=== PATIENT | female | born 1990 | race Caucasian/White ===

== ENCOUNTER 2016-11-23 19:07 | Emergency (ER) | payer OTHER ==
[~2016-11-23] VITALS: Ht 162.6 cm; Wt 59.3 kg
[~2016-11-23 19:07] MED LIST: BCPILLS
[2016-11-23 19:13] VITALS: TEMP 36.8; Ht 162.6 cm; Wt 59.3 kg
[2016-11-23 19:43] LABS: BASO % 0.3 %; BASO ABS # 0.05 K/uL (0-0.2); COMPLETE YES; EOS % 1.5 %; HEMATOCRIT 38.4 % (37-47); IG% 0.3 %; LYMPH % 19.8 %; LYMPH ABS # 2.84 K/uL (1.2-3.4); MEAN CORPUSCULAR HEMOGLOBIN 30.2 pg (25-34); MEAN CORPUSCULAR HGB CONC 35.9 g/dl (32-36); MEAN PLATELET VOLUME 10.2 fL (7.4-10.4); MONO % 4.9 %; NEUT % 73.2 %; PLATELET COUNT 240 K/uL (130-400); RED BLOOD COUNT 4.57 M/uL (4.2-5.4); WHITE BLOOD COUNT 14.37 K/uL (4.8-10.8)
[2016-11-23 19:47] LABS: URINE APPEARANCE CLEAR (CLEAR); URINE BILIRUBIN NEG (NEG); URINE COLOR YELLOW; URINE EPITHELIAL CELL AUTO >30 /lpf (0-5); URINE NITRITE NEG (NEG); URINE SPECIFIC GRAVITY 1.015 (1.000-1.030); UROBILINOGEN NEG (NEG)
[2016-11-23 19:52] LABS: MANUAL MICROSCOPIC REQUIRED? NO; REVIEW REQ? YES
[2016-11-23 19:59] LABS: CALCIUM 8.9 mg/dl (8.5-10.1)
[2016-11-23 20:03] LABS: CREATININE 0.8 mg/dl (0.60-1.20); POTASSIUM 3.8 mmol/L (3.5-5.1)
--- NOTE | 2016-11-23 20:37 | DIAGNOSTIC IMAGING REPORT ---
ECTOPIC ULTRASOUND (TRANSABDOMINAL AND ENDOVAGINAL SCANNING) CLINICAL HISTORY: Vaginal bleeding. . COMPARISON STUDY: No previous studies for comparison. FINDINGS: The uterus measures 7.1 x 4.2 x 4.2 cm. Endometrial stripe measures 5 mm. No intrauterine gestational sac is visualized. There is a 13 mm uterine fibroid. The left ovary measures 32 x 17 x 21 mm. The left ovary appears architecturally unremarkable. The right ovary measures 30 x 19 x 32 mm. There is an ill-defined echogenic mass adjacent to the right ovary, likely representing a blood clot. There is hemorrhagic free fluid within the adnexa and cul-de-sac. IMPRESSION: 1. Ill-defined echogenic mass adjacent to the right ovary, likely representing a blood clot. There is echogenic free fluid in the adnexal regions or cul-de-sac, consistent with hemoperitoneum. Likely diagnostic considerations include ruptured hemorrhagic cyst versus ruptured ectopic . 2. No intrauterine gestational sac identified Electronically signed by: Eris Blackwell M.D. 11/23/2016 8:35 PM Dictated Date/Time: 11/23/2016 8:32 PM
[2016-11-23 22:30] VITALS: BP 109/79; PULSE 82; O2SAT 97
--- NOTE | 2016-11-23 23:18 | EMERGENCY ROOM VISIT NOTE ---
History Report prepared by Davi: Shelli Candelaria Under the Supervision of: Dr. Elijah Hurtado M.D. First contact with patient: 19:16 Chief Complaint: ED VAG BLEEDING Stated Complaint: + PREG TEST,BLEEDING TODAY History of Present Illness The patient is a 26 year old female who presents to the Emergency Room with complaints of intermittent vaginal bleeding for the past couple of hours. The patient had a positive test 10 days ago. She estimates that she is about 4-5 weeks . But she has irregular periods, so she is not completely sure. She has not followed-up with ob-sales and service agent yet. This is her first . She has not been doing any fertility treatments. The patient states that a couple of hours she started experiencing some red blood that is heavier than spotting and close to the amount of bleeding she has with a period. She has also been experiencing some mild pelvic cramping which has resolved. The patient denies fever, vomiting, urinary symptoms, recent trauma or injury, and any personal history of PID. Source of History: patient Onset: a couple of hours ago Position: other (vaginal) Symptom Intensity: mild Quality: other (bleeding) Timing: intermittent Associated Symptoms: + abdominal pain (pelvic cramping), No fevers, No urinary symptoms, No vomiting Review of Systems See HPI for pertinent positives & negatives. A total of 10 systems reviewed and were otherwise negative. Past Medical & Surgical Medical Problems: (1) Pain, dental (2) Pain, dental Family History No pertinent history stated. Social History Smoking Status: Current Every Day Smoker Marital Status: Housing Status: lives with significant other Current/Historical Medications No Active Prescriptions or Reported Meds Allergies Coded Allergies: No Known Allergies (Unverified , NONE, 11/23/16) Physical Exam Vital Signs Date Time Temp Pulse Resp B/P Pulse Ox O2 Delivery O2 Flow Rate FiO2 11/23/16 22:30 82 109/79 97 11/23/16 20:57 77 15 116/91 99 Room Air 11/23/16 19:13 36.8 100 16 169/93 97 Room Air Physical Exam Constitutional: Vital signs reviewed. Eyes: Pupils are equal round reactive to light. Conjunctiva are noninjected. ENT: Pharynx is clear without erythema or exudate. Mucous membranes are moist. Neck supple without meningeal signs. Respiratory: Clear to auscultation bilaterally. Breath sounds are equal bilaterally. Cardiovascular: Regular rate and rhythm. No rubs or gallops. GI: Soft, nondistended and nontender. Bowel sounds are present. Musculoskeletal: No peripheral edema. Integumentary: No cyanosis. Neurological: The patient is awake and alert. No focal deficits. Psychiatric: Normal affect. Medical Decision & Procedures ER Provider Diagnostic Interpretation: Radiology results as stated below per my review and the radiologist's interpretation: ECTOPIC ULTRASOUND (TRANSABDOMINAL AND ENDOVAGINAL SCANNING) CLINICAL HISTORY: Vaginal bleeding. . COMPARISON STUDY: No previous studies for comparison. FINDINGS: The uterus measures 7.1 x 4.2 x 4.2 cm. Endometrial stripe measures 5 mm. No intrauterine gestational sac is visualized. There is a 13 mm uterine fibroid. The left ovary measures 32 x 17 x 21 mm. The left ovary appears architecturally unremarkable. The right ovary measures 30 x 19 x 32 mm. There is an ill-defined echogenic mass adjacent to the right ovary, likely representing a blood clot. There is hemorrhagic free fluid within the adnexa and cul-de-sac. IMPRESSION: 1. Ill-defined echogenic mass adjacent to the right ovary, likely representing a blood clot. There is echogenic free fluid in the adnexal regions or cul-de-sac, consistent with hemoperitoneum. Likely diagnostic considerations include ruptured hemorrhagic cyst versus ruptured ectopic . 2. No intrauterine gestational sac identified Electronically signed by: Eris Blackwell M.D. 11/23/2016 8:35 PM Dictated Date/Time: 11/23/2016 8:32 PM Laboratory Results 11/23/16 19:34 Red Blood Count 4.57, Mean Corpuscular Volume 84.0, Mean Corpuscular Hemoglobin 30.2, Mean Corpuscular Hemoglobin Concent 35.9, Mean Platelet Volume 10.2, Neutrophils (%) (Auto) 73.2, Lymphocytes (%) (Auto) 19.8, Monocytes (%) (Auto) 4.9, Eosinophils (%) (Auto) 1.5, Basophils (%) (Auto) 0.3, Neutrophils # (Auto) 10.52, Lymphocytes # (Auto) 2.84, Monocytes # (Auto) 0.71, Eosinophils # (Auto) 0.21, Basophils # (Auto) 0.05 11/23/16 19:34 Test 11/23/16 19:25 11/23/16 19:34 Urine Color YELLOW Urine Appearance CLEAR (CLEAR) Urine pH 6.0 (4.5-7.5) Urine Specific [place] 1.015 (1.000-1.030) Urine Protein NEG (NEG) Urine Glucose (UA) NEG (NEG) Urine Ketones NEG (NEG) Urine Occult Blood 3+ (NEG) Urine Nitrite NEG (NEG) Urine Bilirubin NEG (NEG) Urine Urobilinogen NEG (NEG) Urine Leukocyte Esterase SMALL (NEG) Urine WBC (Auto) 5-10 /hpf (0-5) Urine RBC (Auto) >30 /hpf (0-4) Urine Hyaline Casts (Auto) 0 /lpf (0-5) Urine Epithelial Cells (Auto) >30 /lpf (0-5) Urine Bacteria (Auto) NEG (NEG) Urine Renal Epithelial Cells /lpf (0-5) White Blood Count 14.37 K/uL (4.8-10.8) Red Blood Count 4.57 M/uL (4.2-5.4) Hemoglobin 13.8 g/dL (12.0-16.0) Hematocrit 38.4 % (37-47) Mean Corpuscular Volume 84.0 fL (80-100) Mean Corpuscular Hemoglobin 30.2 pg (25-34) Mean Corpuscular Hemoglobin Concent 35.9 g/dl (32-36) Platelet Count 240 K/uL (130-400) Mean Platelet Volume 10.2 fL (7.4-10.4) Neutrophils (%) (Auto) 73.2 % Lymphocytes (%) (Auto) 19.8 % Monocytes (%) (Auto) 4.9 % Eosinophils (%) (Auto) 1.5 % Basophils (%) (Auto) 0.3 % Neutrophils # (Auto) 10.52 K/uL (1.4-6.5) Lymphocytes # (Auto) 2.84 K/uL (1.2-3.4) Monocytes # (Auto) 0.71 K/uL (0.11-0.59) Eosinophils # (Auto) 0.21 K/uL (0-0.5) Basophils # (Auto) 0.05 K/uL (0-0.2) RDW Standard Deviation 41.3 fL (36.4-46.3) RDW Coefficient of Variation 13.5 % (11.5-14.5) Immature Granulocyte % (Auto) 0.3 % Immature Granulocyte # (Auto) 0.04 K/uL (0.00-0.02) Anion Gap 7.0 mmol/L (3-11) Est Creatinine Clear Calc Drug Dose 91.3 ml/min Estimated GFR () 117.1 Estimated GFR (Non- 101.0 BUN/Creatinine Ratio 14.0 (10-20) Calcium Level 8.9 mg/dl (8.5-10.1) Human Chorionic Gonadotropin, Quant 741 mIU/mL Laboratory results as reviewed by me. ED Course 1915: The patient was evaluated in room B4B. A complete history and physical exam was performed. 2116: I spoke with Dr. Haider of [facility] ob-sales and service agent. We discussed the patient's case and her ultrasound results. He will come to the ED to evaluation the patient for further management. 2116: I reassessed the patient at this time. She says that she feels no pain at the moment and the bleeding has slowed down significantly. I discussed the results and treatment plan with the patient. I answered all pertaining questions that she had. She expressed understanding and verbalized agreement. 2258: I discussed the case with Dr. Haider in the ED. He says that the patient reports a history of hemorrhagic ovarian cysts. Medical Decision This is a 26-year-old female presents with vaginal bleeding. Differential diagnosis includes threatened miscarriage, miscarriage, ectopic , heterotopic , fibroid. I did perform a limited focused review of portions of the patient's old chart on the electronic medical record. The patient has had no recent pertinent visits to this hospital. I did evaluate the patient as noted above. IV access was established. I did order and personally review the patient's urinalysis as described above. The specimen appeared to be contaminated. She denies any urinary symptoms. I did order and review the patient's blood work as noted in the electronic medical record. Her beta-hCG is 741. She is not anemic. Blood type is O+. I did order an ultrasound of the pelvis. I did review the images myself as well as the radiology report as described above. There was an echogenic mass adjacent to the right ovary considered to be likely a blood clot as well as some hemoperitoneum. I did reassess the patient. She stated that her bleeding had slowed down significantly and she had no pain. She appears quite comfortable at this time. I did discuss the test results with the patient and her significant other. I was concerned about possible ectopic with rupture at this time. I did discuss the case with Dr. Haider of [facility]. He did examine the patient here in the emergency department. After discussion with the patient he decided to discharge her home with 12 hour follow up. While he could not rule out ectopic he did state that the patient has a history of hemorrhagic cyst. He did offer her hospitalization but he stated that she preferred to go home. He did arrange for follow up at 8:30 in the morning with Dr. Breen. The patient was given strict instructions to return and discharged in good condition. Consults Time Called: 2110 Consulting Physician: Dr. Haider Returned Call: [address] Haider of [facility] ob-sales and service agent. We discussed the patient's case and her ultrasound results. He will come to the ED to evaluation the patient for further management. Impression Primary Impression: First trimester bleeding Additional Impression: Hemoperitoneum Scribe Attestation The scribe's documentation has been prepared under my direct and personally reviewed by me in its entirety. I confirm that the note above accurately reflects all work, treatment, procedures, and medical decision making performed by me. Departure Information Dispostion Being Evaluated By Hospitalist Prescriptions No Active Prescriptions or Reported Meds Referrals No Doctor, Assigned (PCP) Patient Instructions My [facility] Health Problem Qualifiers
--- NOTE | 2016-11-24 00:14 | HISTORY & PHYSICAL EXAMINATION ---
DATE OF ADMISSION: 11/23/2016 HISTORY OF PRESENT ILLNESS: Janett presented to the Emergency Room initially with cramping and knowing to be with the last menstrual period of 10/07/2016. The cramping started soon afterwards, but then she had some bleeding initially, brownish in nature than pink and then she started to have heavier bleeding, heavier than a period, and passed a clot.. She did not notice any tissue, but she did pass this over the toilet. She has no pain at this time at all. In fact, when questioned on her drive in, she stated over the bumpy parts of her ride, she had no discomfort whatsoever. She has no nausea, no distention and no vomiting. She states she does have a past history of ovarian cyst, specifically, hemorrhagic ovarian cyst. PAST GYNECOLOGICAL HISTORY: No major AGENT TELEGRAPHER issues. No history of PID. PAST OBSTETRICAL HISTORY: Never been before. She states she has been trying to get for the last 6 years. PAST MEDICAL HISTORY: States she is healthy. PAST SURGICAL HISTORY: No major surgeries. MEDICATIONS: None. DRUG ALLERGIES: None. PHYSICAL EXAMINATION: VITAL SIGNS: Her vital signs are stable. She is afebrile, pulse rate is 77. Blood pressure 116/91. She is afebrile. ABDOMEN: Benign. Bowel sounds are positive. There is no distention. It is nontender. There is no peritoneal irritation. No rebound pain and no pain on percussion. PELVIC: Exam id done with nursing. On visualization of the cervix, the os does not appear open. There is some dark blood coming from the cervical os. No pus is seen. BIMANUAL EXAM: Is completely nontender, uterus not enlarged. Adnexa are nontender, specifically the right adnexa and the left adnexa, no masses are palpated and no motion tenderness and no tenderness, whatsoever. IMPRESSION AND PLAN: Janett had a quantitative hCG of 741. Her blood type is O positive. Ultrasound did suggest hemoperitoneum, however and an ill-defined echogenic mass adjacent to the right ovary, likely representing a blood clot. The fluid is only present within the adnexa and cul-de-sac. I reviewed this case and actually discussed this case with my colleague, Dr. Breen, as well and the ER doctor, Dr. Elijah Hurtado, to formulate a plan. The most likely diagnosis is she is having a spontaneous miscarriage at 7 weeks. Her quantitative hCG should be significantly higher and the uterus does appear empty. However, the empty uterus does not necessarily concern me for ectopic as the count is 741, which is well below the 1000 threshold. Another factor of having miscarriage is she has no pain at this time; the cramping was only associated with the clot and her bimanual exam and abdominal exam are completely without pain or tenderness. I did discuss that the possibility of ectopic is there, as there was an ill-defined echogenic mass, which again looked like a blood clot. I do think this is much more likely to be a hemorrhagic ovarian cyst. We discussed several options of management, we discussed the option of surgery; however, she is hemodynamically stable. Her blood count is excellent at 13.8. Her white count is elevated at 14.37, but this is consistent with and/or a ruptured ovarian cyst. Certainly, with such a quiet abdomen and pelvic exam and hemodynamically stable, I do not think surgery is our first option. I discussed and represented two options for her, one with a short stay of observation where she stayed for 12 hours and then we observed her. Alternatively, I suggested the option of going home and follow up in our office tomorrow for assessment. This would include quantitative hCG and hemoglobin. If this were the case and she went home, and the patient does prefer to go home, I discussed that if her symptoms became worse, such as lightheadedness, increased bleeding or pain or generally feeling unwell, I would urge her and her partner to come back to the ER as soon as possible for reassessment. At this stage, it simply is impossible to rule out ectopic; I just think clinically, it is unlikely and again I discussed this with my colleague, Dr. Breen. We agree that this is unlikely and the option of observation at home or observation in the hospital are both reasonable. They prefer observation at home and we will make arrangements for them to be assessed in the office tomorrow. KIERA
== END 2016-11-23 22:35 | disposition home or self-care (01) ==
LOC: C.EDB 19:08
DX: O20.8 Other hemorrhage in early pregnancy (principal); O99.611 Diseases of the digestive system complicating pregnancy, first trimester; K66.1 Hemoperitoneum; O99.331 Smoking (tobacco) complicating pregnancy, first trimester; F17.200 Nicotine dependence, unspecified, uncomplicated

== ENCOUNTER → 2016-11-24 | Outpatient (CLI) | payer OTHER ==
[2016-11-24 09:32] LABS: HEMATOCRIT 39.8 % (37-47); MEAN CELL VOLUME 84.9 fL (80-100); MEAN CORPUSCULAR HEMOGLOBIN 29.4 pg (25-34); MEAN PLATELET VOLUME 10.5 fL (7.4-10.4); PLATELET COUNT 247 K/uL (130-400); RED BLOOD COUNT 4.69 M/uL (4.2-5.4); WHITE BLOOD COUNT 12.17 K/uL (4.8-10.8)
[2016-11-24 09:34] LABS: MEAN CORPUSCULAR HGB CONC 34.7 g/dl (32-36)
== END | disposition home or self-care (01) ==
LOC: C.LAB1850 09:11
PROVIDERS: ATTEND Obstetrics & Gynecology
DX: Z33.1 Pregnant state, incidental (principal)

== ENCOUNTER → 2016-11-26 | Outpatient (CLI) | payer OTHER | END | disposition home or self-care (01) | LOC: C.LAB1850 10:12 | PROVIDERS: ATTEND Obstetrics & Gynecology | DX: Z33.1 Pregnant state, incidental (principal) ==

== ENCOUNTER → 2016-11-30 | Outpatient (CLI) | payer OTHER | END | disposition home or self-care (01) | LOC: C.LAB1850 14:45 | PROVIDERS: ATTEND Obstetrics & Gynecology | DX: Z33.1 Pregnant state, incidental (principal) ==

== ENCOUNTER 2023-06-11 18:18 | Observation (INO) ==
[2023-06-11] MEDS ORDERED: MoRPHine SULFATE 4 MG/ML 1 ML CARP\\VIAL IV STA (18:35)
[2023-06-11] MEDS: SODIUM CHLORIDE 0.9% 1,000 ML IV SCH ×2 (18:45→19:24)
[2023-06-11] MEDS ORDERED: SODIUM CHLORIDE 0.9% 250 ML IV PRN (18:58)
--- NOTE | 2023-06-11 19:06 | Emergency Department Note ---
Impression & Plan Hemoperitoneum due to rupture of right tubal ectopic , , ectopic ED Provider Note NAME: RANDI ZAPATA AGE: 32 SEX: F : 1990 ARRIVES VIA: Ambulance INFORMANT: Patient ED PROVIDER(S): Ralph Lilly DO CHIEF COMPLAINT: abdominal pain HPI: Patient is a 32-year-old female who presents the ER for severe abdominal pain. She notes she is about 7 to 8 weeks . She is a who notes that she is not having any vaginal bleeding but is having severe abdominal pain diffusely throughout her suprapubic region tracking up to her rib cage. She notes it is very painful with any kind of movement. She notes is also painful with breathing. She denies any headache or change in vision. No chest pain or shortness of breath. 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 ADDITIONAL HISTORY OBTAINED: Per HPI Chronic Medical/Social Conditions Affecting Care: Per HPI PAST MEDICAL HISTORY:See Below PAST SURGICAL HISTORY:See Below FAMILY HISTORY:See Below SOCIAL HISTORY:See Below HOME MEDICATIONS:See Below ALLERGIES:See Below VITALS:See Below PHYSICAL EXAMINATION: GENERAL: Sitting up in bed, alert, moderate distress holding abdomen EYE EXAM: normal conjunctiva. PERRL and EOM's grossly intact. OROPHARYNX: no exudate, no erythema, lips, buccal mucosa, and tongue normal and mucous membranes are moist NECK: supple, no nuchal rigidity, no adenopathy, non-tender LUNGS: Clear to auscultation. Normal chest wall mechanics HEART: no murmurs, S1 normal and S2 normal ABDOMEN: abdomen slightly rigid and diffusely tender to palpation with guarding in the lower pelvis UPPER EXTREMITIES: upper extremities are grossly normal. LOWER EXTREMITIES: No pitting edema. NEURO EXAM: Normal sensorium, cranial nerves II-XII grossly intact, normal speech, no gross weakness of arms, no gross weakness of legs. MEDICAL DECISION MAKING: Patient is a 32-year-old female who presents the ER via EMS. History was obtained from EMS present at bedside. IVs were established blood work was obtained. I obtained a quick bedside ultrasound which showed free fluid around the liver and a large amount of free fluid in the pelvis which appeared to be complex. Patient was typed and crossed and external records were reviewed in [facility] that showed beta hCG 50,000. Labs showed a white count of 23,000 and hemoglobin 11.4 down from baseline of about 13. She was typed and crossed for 2 units. INR unremarkable. BMP with mild hypokalemia 3.4. LFTs bilirubin was unremarkable. hCG of 57,000. Did contact ultrasound who presented at bedside and performed a quick ultrasound which located the likely ectopic in the right adnexa. I called Dr. Cr who is on-call who presented at bedside evaluate the patient and took patient emergently to the OR for ruptured ectopic. Patient was given morphine and fluids while in the ER. External Records Reviewed: External records reviewed from epic Consults/Care Managements Discussions: Per [facility] Triage Nursing notes reviewed. Limited review of prior medical records performed Vital Signs: reviewed and remarkable for HTN Differential diagnosis: Differential diagnoses includes but is not limited to gastritis, peptic ulcer disease, GERD, gallbladder disease, pancreatitis, small bowel obstruction, appendicitis, diverticulitis, hernia, urinary tract infection, torsion, /ectopic (if female), perforation, trauma, infectious. ER treatment provided: See below Diagnostics interpreted by me include EKG and cardiac monitoring as listed below: -Cardiac Monitoring: An order was placed for continuous cardiac monitoring. The monitor shows a rate of 60 with sinus rhythm. -ECG: Sinus rhythm rate of 59 Normal axis No PVCs QTc 427 -Laboratory studies:Interpreted by me as stated above in MDM and shown below. Imaging studies: Xrays: As interpreted by me:none CTs show: none Bedside ultrasound performed by me shows blood products in the lower pelvis and right upper quadrant around the liver Ultrasound of the pelvis shows likely right ectopic with hemoperitoneum Procedures:none Critical Care: I have personally spent 35 minutes of critical care time in the direct management of this patient. This includes bedside care, interpretation of diagnostic studies, and testing, discussion with consultants, patient, and family members, and other required patient management activities. This 35 minutes is in excess of all separately billable procedures. Past Med/Surg History Medical History No pertinent past medical history Surgical History No pertinent past surgical history Social History Smoking Status: Current every day smoker Tobacco Type: Cigarettes Hx Alcohol Use: No Hx Substance Use: No Preferred Language: Vietnamese Feels Safe at Home: Yes Allergies Allergies Allergy/AdvReac Type Severity Reaction Status Date / Time No Known Allergies Allergy Unknown NONE Verified 06/11/23 19:10 Home Meds Home Medications Medication Instructions Recorded Confirmed acetaminophen 500 mg tablet 500 mg PO DIRECTED PRN Pain 05/19/21 06/11/23 vit no.95-ferrous 1 tab PO DAILY 06/11/23 06/11/23 fumarate 28 mg-folic acid 800 mcg tablet () Results & Data (ED) Vital Signs Vital Signs - 24 hr 06/11/23 18:21 06/11/23 18:32 06/11/23 18:40 Temperature 36.4 C L Temperature Source Oral Pulse Rate 75 56 L 59 L Respiratory Rate 20 Respiratory Effort / Characteristics Non-Labored Spontaneous Respiratory Depth Normal Respiratory Pattern Regular Blood Pressure 134/75 Blood Pressure Mean 94 Blood Pressure Position Lying Pulse Oximetry 100 Oxygen Delivery Method Room Air Room Air Sepsis Recent Fever Within 48 Hours No Sepsis New/Unexplained Change in Mental Status No Sepsis Action Taken by Nursing No Action Required 06/11/23 20:21 Temperature Temperature Source Pulse Rate Respiratory Rate Respiratory Effort / Characteristics Respiratory Depth Respiratory Pattern Blood Pressure Blood Pressure Mean Blood Pressure Position Pulse Oximetry Oxygen Delivery Method Room Air Sepsis Recent Fever Within 48 Hours Sepsis New/Unexplained Change in Mental Status Sepsis Action Taken by Nursing Laboratory Data 06/11/23 18:30 06/11/23 18:30 Lab Results 06/11/23 06/11/23 06/11/23 Range/Units 18:30 18:39 18:40 WBC 23.31 H (4.8-10.8) K/ul RBC 3.70 L (4.20-5.40) M/uL Hgb 11.4 L (12.0-16.0) g/dl POC Hgb 11.2 L (12.0-16.0) g/dl Hct 31.7 L (37.0-47.0) % POC Hct 33 L (37-47) % MCV 85.7 (80.0-100.0) fL MCH 30.8 (25.0-34.0) pg MCHC 36.0 (32.0-36.0) g/dL RDW Std Deviation 39.8 (36.4-46.3) fL RDW Coeff of Kaiser 12.8 (11.5-14.5) % Plt Count 216 (130-400) K/uL MPV 11.0 (9.4-12.4) fL Immature Gran % (Auto) 0.7 % Neut % (Auto) 75.8 % Lymph % (Auto) 16.0 % [place] % (Auto) 5.7 % Eos % (Auto) 1.2 % Baso % (Auto) 0.6 % Neut # (Auto) 17.67 H (1.40-6.50) K/uL Lymph # (Auto) 3.73 H (1.20-3.40) K/uL [place] # (Auto) 1.34 H (0.11-0.59) K/uL Eos # (Auto) 0.27 (0.00-0.50) K/uL Baso # (Auto) 0.13 (0.00-0.20) K/uL Immature Gran # (Auto) 0.17 (0.01-0.20) K/uL PT 12.2 H (9.0-12.0) Seconds INR 1.1 (0.9-1.1) POC Sodium 138 (135-144) mmol/L Sodium 135 L (136-145) mmol/L POC Potassium 3.3 (3.3-5.0) mmol/L Potassium 3.4 L (3.5-5.1) mmol/L POC Chloride 103 (101-112) mmol/L Chloride 106 (98-107) mmol/L Carbon Dioxide 22 (21-32) mmol/L POC Total CO2 20 L (24-31) mmol/L Anion Gap 7 (3-11) POC Anion Gap 19.0 (16-25) mmol/L POC BUN 6 L (7-18) mg/dl BUN 8 (6-23) mg/dl Creatinine 0.61 (0.6-1.2) mg/dl POC Creatinine 0.5 L (0.6-1.3) mg/dl Est Cr Clr Drug Dosing 125.5 ml/min Est GFR ( Amer) 138.1 ml/min Est GFR (Non-Af Amer) 119.1 ml/min BUN/Creatinine Ratio 13.1 (10-20) Glucose 130 H (70-99(Fasting)) mg/dl POC Glucose (other) 130 H (70-99) mg/dl Calcium 8.6 (8.6-10.3) mg/dl POC Ioniz Calcium Venecia 1.12 (1.12-1.32) mmol/l Total Bilirubin 0.6 (0.2-1.0) mg/dl AST 11 L (13-39) U/L ALT 10 (7-52) U/L Alkaline Phosphatase 37 (34-104) U/L Total Protein 6.4 (6.0-8.3) gm/dl Albumin 4.2 (3.4-5.0) gm/dl Globulin 2.2 L (2.5-4.0) gm/dl Albumin/Globulin Ratio 1.9 (0.9-2) HCG, Quant 23277 mIU/ml Blood Type O Positive Antibody Screen NEGATIVE Crossmatch See Detail Administered Medications Discontinued Medications Sodium Chloride (Nss) 1,000 mls @ 999 mls/hr IV .Q1H1M RADHA Stop: 06/11/23 20:45 Last Admin: 06/11/23 19:24 Dose: 999 mls/hr Documented By: Infusion: 06/11/23 19:24 Dose: Infused Documented By: Admin: 06/11/23 18:45 Dose: 999 mls/hr Documented By: CPB Cefazolin Sodium (Ancef 2000mg) 2,000 mg in 15 mls @ 3.75 mls/min IV ONCE ONE; Protocol Stop: 06/11/23 21:31 Last Admin: 06/11/23 20:55 Dose: 3.75 mls/min Documented By: [id number] Morphine Sulfate (Morphine Sulfate 4 Mg/Ml 1 Ml Carp\Vial) 4 mg IV NOW STA Stop: 06/11/23 18:36 Last Admin: 06/11/23 18:40 Dose: 4 mg Documented By: CPB Imaging Data Radiologist's Impression: Ultrasound 06/11/23 18:32 CR Exam(s): US OB 1st TRIMESTER EXAM: US First Trimester , Transabdominal CLINICAL HISTORY: Reason for exam: ? Ruptured ectopic. TECHNIQUE: Real-time transabdominal obstetrical ultrasound of the maternal pelvis and a first trimester with image documentation. COMPARISON: No relevant prior studies available. FINDINGS: Gestation: No intrauterine gestational sac is seen. Uterus/cervix: There is a rim calcified mass measuring 4.5 x 4.3 x 4.8 cm in the uterus consistent with a fibroid. The uterus measures 10.8 x 5. 6 x 6.2 cm. Ovaries: There is a thick-walled cystic structure measuring 1.8 x 2.5 x 1.7 cm in the right adnexa with increased Doppler blood flow along the rim. No structures are identified. The left ovary is not visible. Free fluid: There is a moderate amount of free fluid in the pelvis and along the inferior margin of the liver. IMPRESSION: No intrauterine gestational sac is seen. Complex cystic structure in the right adnexa measuring 2.5 cm. There is a moderate amount of free fluid in the pelvis and in the abdomen adjacent to the inferior margin of the liver. Possible ruptured ectopic . Other considerations include right adnexal corpus luteum cyst and recent failed . Correlate with serial quantitative beta hCG if necessary. Communications: Call Doctor Above results Electronically signed by: Mohsen Handley MD 06/11/23 19:38 PM Discharge Plan Visit Data Chief Complaint: Abdominal Pain Stated Complaint: , POSS MISCARRIAGE ED Provider: Ralph Lilly Discharge Problem: Hemoperitoneum due to rupture of right tubal ectopic , , ectopic Patient Disposition: Admitted As Inpatient Discharge Instructions Interventions: ED Discharge Assessment Last Done: 06/11/23 20:21 Discharge Problem: , ectopic Qualifiers: Location of ectopic : unspecified location Intrauterine status: unspecified Qualified Code(s): O00.90 - Unspecified ectopic without intrauterine
[2023-06-11 19:11] LABS: Albumin Globulin Ratio 1.9 (0.9-2); Albumin Level 4.2 gm/dl (3.4-5.0); BUN Creatinine Ratio 13.1 (10-20); Bilirubin,Total 0.6 mg/dl (0.2-1.0); Calcium 8.6 mg/dl (8.6-10.3); Creatinine Clr Calc Pharmacy 125.5 ml/min; Est GFR (African American) 138.1 ml/min; Est GFR (Non-African American) 119.1 ml/min; Globulin 2.2 gm/dl (2.5-4.0); Potassium 3.4 mmol/L (3.5-5.1); Total Protein 6.4 gm/dl (6.0-8.3)
[2023-06-11 19:13] LABS: Basophils # (auto) 0.13 K/uL (0.00-0.20); Basophils % (auto) 0.6 %; Eosinophils # (auto) 0.27 K/uL (0.00-0.50); Eosinophils % (auto) 1.2 %; Hematocrit (blood only) 31.7 % (37.0-47.0); Hemoglobin 11.4 g/dl (12.0-16.0); Immature Granulocytes # (auto) 0.17 K/uL (0.01-0.20); Immature Granulocytes % (auto) 0.7 %; Lymphocytes # (auto) 3.73 K/uL (1.20-3.40); Mean Corpuscular Hemoglobin 30.8 pg (25.0-34.0); Mean Corpuscular Volume 85.7 fL (80.0-100.0); Monocytes # (auto) 1.34 K/uL (0.11-0.59); Monocytes % (auto) 5.7 %; Neutrophils # (auto) 17.67 K/uL (1.40-6.50); Neutrophils % (auto) 75.8 %; Platelet Count 216 K/uL (130-400); RDW Coefficient of Variation 12.8 % (11.5-14.5); RDW Standard Deviation 39.8 fL (36.4-46.3); White Blood Count 23.31 K/ul (4.8-10.8)
[2023-06-11 19:19] LABS: INR 1.1 (0.9-1.1); Prothrombin Time 12.2 Seconds (9.0-12.0)
[2023-06-11 19:32] LABS: iSTAT Creatinine 0.5 mg/dl (0.6-1.3); iSTAT Hemoglobin 11.2 g/dl (12.0-16.0); iSTAT Ionized Calcium 1.12 mmol/l (1.12-1.32); iSTAT Potassium 3.3 mmol/L (3.3-5.0)
--- NOTE | 2023-06-11 19:39 | Ultrasound Report ---
Exam(s): US OB 1st TRIMESTER EXAM: US First Trimester , Transabdominal CLINICAL HISTORY: Reason for exam: ? Ruptured ectopic. TECHNIQUE: Real-time transabdominal obstetrical ultrasound of the maternal pelvis and a first trimester with image documentation. COMPARISON: No relevant prior studies available. FINDINGS: Gestation: No intrauterine gestational sac is seen. Uterus/cervix: There is a rim calcified mass measuring 4.5 x 4.3 x 4.8 cm in the uterus consistent with a fibroid. The uterus measures 10.8 x 5. 6 x 6.2 cm. Ovaries: There is a thick-walled cystic structure measuring 1.8 x 2.5 x 1.7 cm in the right adnexa with increased Doppler blood flow along the rim. No structures are identified. The left ovary is not visible. Free fluid: There is a moderate amount of free fluid in the pelvis and along the inferior margin of the liver. IMPRESSION: No intrauterine gestational sac is seen. Complex cystic structure in the right adnexa measuring 2.5 cm. There is a moderate amount of free fluid in the pelvis and in the abdomen adjacent to the inferior margin of the liver. Possible ruptured ectopic . Other considerations include right adnexal corpus luteum cyst and recent failed . Correlate with serial quantitative beta hCG if necessary. Communications: Call Doctor Above results Electronically signed by: Mohsen Handley MD 06/11/23 19:38 PM
[2023-06-11] MEDS ORDERED: BUPIVACAINE 0.5 % 5 MG/1 ML MPF 30ML VIAL ONE (20:09)
[2023-06-11] MEDS ORDERED: SUCCINYLCHOLINE CHLORIDE 20 MG/ML 10 ML VIAL IV ONE (20:11)
[2023-06-11] MEDS ORDERED: fentaNYL citrate PF 100 MCG/2 ML VIAL ONE ×3 (20:12→22:23)
[2023-06-11] MEDS ORDERED: ROCURONIUM BROMIDE 10 MG/ML 5 ML VIAL IV ONE (20:12)
[2023-06-11] MEDS ORDERED: PROPOFOL IV EMULSION 10 MG/ML 20 ML VIAL IV ONE (20:12)
--- NOTE | 2023-06-11 20:13 | History & Physical Report ---
Date of Service June 11, 2023 Assessment & Plan (1) , ectopic: Plan: Operative laparoscopy, removal of ectopic (2) Hemoperitoneum due to rupture of right tubal ectopic : History of Present Illness Chief Complaint: abdominal pain Primary Care Provider: Haley Felder MD 32-year-old female para 0-0-3-0 admitted to the emergency room via ambulance due to acute abdominal pain after taking a shower earlier this evening approximately 6 PM she fainted in the shower was brought to the emergency room. The patient is known to be . Chronic care ultrasound done in the emergency revealed hemoperitoneum the patient had no intrauterine gestation and ultrasound done at the bedside by ultrasound revealed a right adnexal mass 2.5 cm with hemoperitoneum noted and no intrauterine gestation. Allergies Allergy/AdvReac Type Severity Reaction Status Date / Time No Known Allergies Allergy Unknown NONE Verified 06/11/23 19:10 Home Medications Medication Instructions Recorded Confirmed Type acetaminophen 500 mg tablet 500 mg PO DIRECTED PRN Pain 05/19/21 06/11/23 History vit no.95-ferrous 1 tab PO DAILY 06/11/23 06/11/23 History fumarate 28 mg-folic acid 800 mcg tablet () Patient History Medical History No pertinent past medical history Surgical History No pertinent past surgical history Social History Smoking Status: Current every day smoker Tobacco Type: Cigarettes Hx Alcohol Use: No Hx Substance Use: No Preferred Language: Sami Feels Safe at Home: Yes 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 No rebound. No prior incisions. Musculoskeletal: Extremities: extremities normal to inspection Skin: no rashes, warm and dry Neurologic: patellar DTR's 2+ bilat, sensation intact Psychiatric: A+Ox3, euthymic affect Results & Data Vital Signs (Past 12 Hours) Vital Signs Temp Pulse Resp BP Pulse Ox O2 Del Method 06/11/23 18:40 59 L 06/11/23 18:32 56 L 100 Room Air 06/11/23 18:21 36.4 C L 75 20 134/75 Room Air Laboratory Results 06/11/23 06/11/23 06/11/23 18:30 18:39 18:40 WBC 23.31 H RBC 3.70 L Hgb 11.4 L POC Hgb 11.2 L Hct 31.7 L POC Hct 33 L MCV 85.7 MCH 30.8 MCHC 36.0 RDW Std Deviation 39.8 RDW Coeff of Kaiser 12.8 Plt Count 216 MPV 11.0 Immature Gran % (Auto) 0.7 Neut % (Auto) 75.8 Lymph % (Auto) 16.0 [place] % (Auto) 5.7 Eos % (Auto) 1.2 Baso % (Auto) 0.6 Neut # (Auto) 17.67 H Lymph # (Auto) 3.73 H [place] # (Auto) 1.34 H Eos # (Auto) 0.27 Baso # (Auto) 0.13 Immature Gran # (Auto) 0.17 PT 12.2 H INR 1.1 POC Sodium 138 Sodium 135 L POC Potassium 3.3 Potassium 3.4 L POC Chloride 103 Chloride 106 Carbon Dioxide 22 POC Total CO2 20 L Anion Gap 7 POC Anion Gap 19.0 POC BUN 6 L BUN 8 Creatinine 0.61 POC Creatinine 0.5 L Est Cr Clr Drug Dosing 125.5 Est GFR ( Amer) 138.1 Est GFR (Non-Af Amer) 119.1 BUN/Creatinine Ratio 13.1 Glucose 130 H POC Glucose (other) 130 H Calcium 8.6 POC Ioniz Calcium [place] 1.12 Total Bilirubin 0.6 AST 11 L ALT 10 Alkaline Phosphatase 37 Total Protein 6.4 Albumin 4.2 Globulin 2.2 L Albumin/Globulin Ratio 1.9 HCG, Quant 22669 Blood Type O Positive Antibody Screen NEGATIVE Crossmatch See Detail Diagnostic Findings ultrasound with hemoperitoneum and right ectopic Code Status & VTE Plan VTE Prophylaxis Plan VTE Prophylaxis will be ordered: No (1) , ectopic Location of ectopic : tubal Laterality: right Intrauterine status: without intrauterine Qualified Code(s): O00.101 - Right tubal without intrauterine
[2023-06-11] MEDS: fentaNYL citrate PF 100 MCG/2 ML VIAL IV PRN ×3 (20:30→22:30)
--- NOTE | 2023-06-11 20:34 | Anesthesiology Consultation ---
Date of Service June 11, 2023 Assessment & Plan ASA ASA3E Proposed Anesthesia Anesthesia Type: General Risk / Benefits Reviewed With: PT / POA / Parent / Guardian, Accepts Plan and Informed Consent Obtained History Surgery Operation Date: 06/11/23 20:00 Proposed Procedures p Laparoscopic Ectopic - Juliocesar Elliott MD Height/Weight Height: 5 ft 4 in Weight: 69.5 kg Allergies Allergy/AdvReac Type Severity Reaction Status Date / Time No Known Allergies Allergy Unknown NONE Verified 06/11/23 19:10 Medications Home Medications Medication Instructions Recorded Confirmed Last Taken acetaminophen 500 mg tablet 500 mg PO DIRECTED PRN Pain 05/19/21 06/11/23 Unknown vit no.95-ferrous 1 tab PO DAILY 06/11/23 06/11/23 06/11/23 fumarate 28 mg-folic acid 800 mcg tablet () Active Medications Generic Name Dose Route Start Last Admin Trade Name Freq PRN Reason Stop Dose Admin Sodium Chloride 1,000 mls @ 999 mls/hr 06/11/23 18:45 06/11/23 19:24 Nss IV 06/11/23 20:45 999 mls/hr .Q1H1M RADHA Administration NPO Date Last Intake of Fluids: 06/11/23 Time Last Intake of Fluids: 12:30 Date Last Intake of Solids: 06/11/23 Time Last Intake of Solids: 12:30 Past Medical History Medical History No pertinent past medical history Exercise / Class Metabolic Activity II 4-5 Yardwork/Stairs/Walk up hill Past Surgical History Surgical History No pertinent past surgical history Past Anesthesia History No Hx of Anesthesia Complications and No Family Hx of Anesthesia Complications History of PONV No Hx of PONV and No Hx of Motion Sickness Social History Smoking Status: Current every day smoker Hx Alcohol Use: No Hx Substance Use: No Review of Systems denies fever/cough/ colds/ chest pain/ SOB/ CARSON denies CARSON Physical Exam Vital Signs Last Vital Signs Temp 36.4 C L 06/11/23 18:21 Pulse 59 L 06/11/23 18:40 Resp 20 06/11/23 18:21 BP 134/75 06/11/23 18:21 Pulse Ox 100 06/11/23 18:32 O2 Del Method Room Air 06/11/23 20:21 ENMT Mouth: + dentition abnormality (veneers) and + poor dentition (many loose "if i take the veneer out they will all fall out"); no TMJ abnormality Thyromental Distance: > or= 3.5 Finger Breadths Mallampati Class: II Neck neck extension not limited Respiratory normal respiratory effort; no respiratory distress Auscultation: lungs clear to auscultation bilaterally Cardiovascular Rate/Rhythm: regular rate and regular rhythm Neurologic moves all extremities Psychiatric Orientation: alert and oriented x 3 Testing Laboratory Results 06/11/23 18:30 06/11/23 18:30 PT 12.2 Seconds (9.0-12.0) H 06/11/23 18:30 INR 1.1 (0.9-1.1) 06/11/23 18:30 HCG, Quant [id number] mIU/ml 06/11/23 18:30 Blood Type O Positive 06/11/23 18:40 Antibody Screen NEGATIVE 06/11/23 18:40 06/11/23 18:39 POC Glucose (other) 130 H 06/11/23 18:30 HCG, Quant [id number]
[2023-06-11] MEDS ORDERED: ONDANSETRON INJ 2 MG/ML 2 ML VIAL IV PRN (20:35)
[2023-06-11] MEDS ORDERED: ATROPINE SULFATE 0.1 MG/ML 10ML SYR IV PRN (20:35)
[2023-06-11] MEDS ORDERED: ePHEDrine sulfate 50 MG/ML AMP IV PRN (20:35)
[2023-06-11] MEDS ORDERED: ceFAZolin 330 MG/ML 1 GM VIAL ONE (21:09)
[2023-06-11] MEDS ORDERED: ceFAZolin 2000MG 2,000 MG/15 ML SYR IV ONE (21:28)
[2023-06-11] MEDS ORDERED: SUGAMMADEX SODIUM 200 MG/2 ML VIAL IV ONE (21:29)
[2023-06-11] MEDS ORDERED: DEXAMETHASONE SOD INJ 4 MG/ML VIAL ONE (21:33)
[2023-06-11] MEDS ORDERED: ONDANSETRON INJ 2 MG/ML 2 ML VIAL ONE (21:33)
[2023-06-11] MEDS ORDERED: ACETAMINOPHEN 1,000 MG/100 ML VIAL IV STA (22:21)
--- NOTE | 2023-06-11 22:29 | Post Operative Brief Note ---
Immediate Post Op Note v1 Date of Surgery June 11, 2023 Pre & Post Diagnosis Operation Date: 06/11/23 20:00 Pre-Op Diagnosis: (1) , ectopic (2) Hemoperitoneum due to rupture of right tubal ectopic Post-Op Diagnosis: (1) , ectopic (2) Hemoperitoneum due to rupture of right tubal ectopic I identified the patient and participated in the time-out.: Yes Procedure Operation Date: 06/11/23 20:00 Actual Procedures p Operative laparoscopy(Not Applicable) - Juliocesar Elliott MD Surgeon Juliocesar Elliott MD Contact Lens Inspector Dr. Valencia Estimated Blood Loss 5 Findings Consistent with Post-Op Diagnosis right ruptured ectopic hemoperitoneum Fluids 1200 ml LR Specimens right tube with ectopic Drains Agee Catheter (inserted by surgeon prior to surgery without difficulty. To be removed at end of surgery.) Complications none Disposition Accompanied Patient To Recovery: Yes Overlapping Procedure I was present for: the critical portions of procedure. I was immediately available: during the entire case. Back up surgeon: used during listed procedure.
--- NOTE | 2023-06-11 22:30 | Operative Report ---
Post Operative Report Pre & Post Diagnosis Operation Date: 06/11/23 20:00 Pre-Op Diagnosis: (1) , ectopic (2) Hemoperitoneum due to rupture of right tubal ectopic Post-Op Diagnosis: (1) , ectopic (2) Hemoperitoneum due to rupture of right tubal ectopic I identified the patient and participated in the time-out.: Yes Procedure Operation Date: 06/11/23 20:00 Actual Procedures p Operative laparoscopy(Not Applicable) - Juliocesar Elliott MD Surgeon Juliocesar Elliott MD Structural Biologist Dr. Valencia Estimated Blood Loss 5 Findings Consistent with Post-Op Diagnosis right ruptured ectopic hemoperitoneum Fluids LR 1200 ml. Specimens right ectopic with tube Drains none Anesthesia Type General Complications none Disposition Accompanied Patient To Recovery: Yes Indications hemoperitoneum Description of Procedure Under satisfactory general anesthesia the patient was prepped draped usual sterile fashion a timeout was called the patient received antibiotics preop and was identified preop. Following this a Agee catheter was placed weighted speculum placed in the posterior vault of the vagina single-tooth tenaculum with Allis clamp were used to grab the cervix for uterine manipulation. Next attention was then turned directed abdominally where a supraumbilical incision was made the incision was 5 mm port. Entry into the abdomen under direct visualization with the laparoscope contents of the pelvic abdominal cavity were filled with blood the patient was then placed in the Trendelenburg position. Next a 5 mm port was placed on the right-hand side of the pelvis upon direct visualization underside irrigated was then placed and suctioned out copious amounts of blood in the peritoneum and abdominal cavity should be noted that there was blood up on the upper abdomen towards the liver. Next a second port was then placed on the left-hand side under direct visualization. A grasper was then used to grab the tube and ovary on the right with the ectopic noted to be within the tube and the tube was ruptured. Next a LigaSure was then placed through the left side of the port and then the tube was excised using energy. Next fourth port was placed on the left which was a 12 mm. The Endo Catch bag was placed into the abdominal cavity and then using a grasper the ectopic with a tube was then placed in the bag the bag was then removed after the port was removed and the specimen was submitted to pathology. The site of the tubal removal was then inspected there was no active bleeding this was then cauterized with the cautery the ovary was intact and was not removed. Next the abdominal cavity was then irrigated and the remaining blood was then suctioned out. The Alberto Barnard instrument was then placed in the 12 mm millimeter por t and then this was used to close the incision. All remaining instruments were found were then removed remaining gas was then allowed to escape. The large port was then closed with 4 Monocryl suture and the remainder of the ports were then closed with Dermabond. The Agee was removed and the instruments were the vagina removed the patient was then placed back in the supine position the final sponge needle instrument counts were found to be correct the patient was then placed supine on the stretcher taken recovery room in stable condition EBL 5 mL total blood suctioned out of the abdomen was 900 mL total fluids 1200 mL and urine output was 200 mL end of dictation thank you I attest to the content of the Intraoperative Record and any orders documented therein. Any exceptions are noted below.
[2023-06-11] MEDS ORDERED: HYDROmorphone INJ 0.5 MG/0.5 ML SYR ONE (22:34)
[2023-06-11] MEDS: HYDROmorphone INJ 2 MG/ML SYR/VIAL IV PRN ×6 (22:35→22:59)
[2023-06-11] MEDS ORDERED: HYDROmorphone INJ 1 MG/ML SYRINGE ONE (22:40)
[2023-06-11] MEDS ORDERED: HYDROmorphone INJ 0.5 MG/0.5 ML SYR IV PRN (22:46)
--- NOTE | 2023-06-11 23:03 | Anesthesiology Progress Note ---
Date of Service June 11, 2023 Anesthesia Post Procedure Vital Signs Vital Signs: Temp Pulse Pulse Resp BP BP Pulse Ox 06/11/23 22:50 73 18 130/83 100 06/11/23 22:40 69 18 129/74 100 06/11/23 22:30 75 18 132/66 100 06/11/23 22:25 73 20 129/67 100 06/11/23 22:18 37.5 C 76 23 123/79 100 06/11/23 20:21 06/11/23 18:40 59 L 06/11/23 18:32 56 L 100 06/11/23 18:21 36.4 C L 75 20 134/75 O2 Del Method 06/11/23 22:50 Room Air 06/11/23 22:40 Room Air 06/11/23 22:30 Room Air 06/11/23 22:25 Room Air 06/11/23 22:18 Room Air 06/11/23 20:21 Room Air 06/11/23 18:40 06/11/23 18:32 Room Air 06/11/23 18:21 Room Air Pain Intensity Bilateral Abdomen: Pain Intensity: 7 Transfer of Care Handoff Completed per policy Notes Mental Status: alert / awake / arousable and participated in evaluation Patient Amnestic to Procedure: Yes Nausea / Vomiting: adequately controlled Pain: adequately controlled Airway Patency, RR, SpO2: stable & adequate BP & HR: stable & adequate Hydration State: stable & adequate Anesthetic Complications: no major complications apparent and Pt Satisfied with anesthetic care
[2023-06-12] MEDS ORDERED: ONDANSETRON INJ 2 MG/ML 2 ML VIAL IV PRN (00:25)
[2023-06-12] MEDS ORDERED: ceFAZolin 2000MG 2,000 MG/15 ML SYR IV SCH (00:25)
[2023-06-12] MEDS ORDERED: oxyCODONE HCL IR 5 MG TAB (IMMEDIATE RELEASE) PO PRN (00:25)
[2023-06-12] MEDS ORDERED: IBUPROFEN 600 MG TAB PO PRN (00:25)
[2023-06-12] MEDS ORDERED: LACTATED RINGER'S 1,000 ML IV SCH ×2 (00:25)
[2023-06-12] MEDS ORDERED: ACETAMINOPHEN 325 MG TAB PO PRN (00:25)
[2023-06-12] MEDS ORDERED: NICOTINE 21 MG/24 HR TDSY TD STA (00:51)
[2023-06-12] MEDS ORDERED: Nursing to Pharmacy Communication SCH (01:00)
[2023-06-12] MEDS: KETOROLAC 30 MG/ML VIAL IV PRN ×2 (01:18→06:25)
[2023-06-12] MEDS ORDERED: ZOLPIDEM TARTRATE 5 MG TAB PO ONE (02:18)
[2023-06-12 08:45] LABS: Basophils # (auto) 0.03 K/uL (0.00-0.20); Basophils % (auto) 0.2 %; Hematocrit (blood only) 26.4 % (37.0-47.0); Hemoglobin 9.4 g/dl (12.0-16.0); Immature Granulocytes # (auto) 0.09 K/uL (0.01-0.20); Immature Granulocytes % (auto) 0.5 %; Lymphocytes # (auto) 1.18 K/uL (1.20-3.40); Lymphocytes % (auto) 6.7 %; Mean Corpuscular Hemoglobin 30.4 pg (25.0-34.0); Mean Corpuscular Hgb Conc 35.6 g/dL (32.0-36.0); Mean Corpuscular Volume 85.4 fL (80.0-100.0); Mean Platelet Volume 10.9 fL (9.4-12.4); Monocytes # (auto) 0.64 K/uL (0.11-0.59); Monocytes % (auto) 3.6 %; Neutrophils # (auto) 15.77 K/uL (1.40-6.50); Platelet Count 185 K/uL (130-400); Red Blood Count 3.09 M/uL (4.20-5.40); White Blood Count 17.71 K/ul (4.8-10.8)
[2023-06-12] MEDS ORDERED: NICOTINE 21 MG/24 HR TDSY TD SCH (09:00)
--- NOTE | 2023-06-12 09:15 | Gynecologic Progress Note ---
Date of Service June 12, 2023 Assessment & Plan Admission and Anticipated Discharge Date Admission Date: June 11, 2023 Subjective Postop day # 1 Patient is seen and examined Feels well, no complaints Pain is under control with oral meds No CP/ SOB/ Dizziness/ N&V/ VB/ Leg pain OOB to BR and hallway many times Tolerating regular diet Flatus + Vital Signs Temp Pulse Pulse Resp BP BP Pulse Ox 06/12/23 07:30 36.8 C 70 18 119/75 100 06/12/23 06:30 36.7 C 72 18 121/69 95 06/12/23 03:01 36.5 C 63 20 108/57 L 97 06/12/23 01:01 36.8 C 64 20 107/60 98 06/11/23 23:50 36.8 C 74 18 123/57 L 93 06/11/23 23:20 75 12 129/66 100 06/11/23 23:10 36.8 C 67 16 124/65 100 06/11/23 23:00 77 16 113/64 100 06/11/23 22:50 73 18 130/83 100 06/11/23 22:40 69 18 129/74 100 06/11/23 22:30 75 18 132/66 100 06/11/23 22:25 73 20 129/67 100 06/11/23 22:18 37.5 C 76 23 123/79 100 O2 Del Method O2 Flow Rate 06/12/23 07:30 Room Air 06/12/23 06:30 Room Air 06/12/23 03:01 Room Air 06/12/23 01:01 Room Air 06/11/23 23:50 Room Air 06/11/23 23:20 Nasal Cannula 2 06/11/23 23:10 Nasal Cannula 2 06/11/23 23:00 Nasal Cannula 2 06/11/23 22:50 Room Air 06/11/23 22:40 Room Air 06/11/23 22:30 Room Air 06/11/23 22:25 Room Air 06/11/23 22:18 Room Air Lab Results 06/11/23 06/11/23 06/11/23 Range/Units 18:30 18:39 18:40 WBC 23.31 H (4.8-10.8) K/ul RBC 3.70 L (4.20-5.40) M/uL Hgb 11.4 L (12.0-16.0) g/dl POC Hgb 11.2 L (12.0-16.0) g/dl Hct 31.7 L (37.0-47.0) % POC Hct 33 L (37-47) % MCV 85.7 (80.0-100.0) fL MCH 30.8 (25.0-34.0) pg MCHC 36.0 (32.0-36.0) g/dL RDW Std Deviation 39.8 (36.4-46.3) fL RDW Coeff of Kaiser 12.8 (11.5-14.5) % Plt Count 216 (130-400) K/uL MPV 11.0 (9.4-12.4) fL Immature Gran % (Auto) 0.7 % Neut % (Auto) 75.8 % Lymph % (Auto) 16.0 % Gordon % (Auto) 5.7 % Eos % (Auto) 1.2 % Baso % (Auto) 0.6 % Neut # (Auto) 17.67 H (1.40-6.50) K/uL Lymph # (Auto) 3.73 H (1.20-3.40) K/uL Gordon # (Auto) 1.34 H (0.11-0.59) K/uL Eos # (Auto) 0.27 (0.00-0.50) K/uL Baso # (Auto) 0.13 (0.00-0.20) K/uL Immature Gran # (Auto) 0.17 (0.01-0.20) K/uL PT 12.2 H (9.0-12.0) Seconds INR 1.1 (0.9-1.1) POC Sodium 138 (135-144) mmol/L Sodium 135 L (136-145) mmol/L POC Potassium 3.3 (3.3-5.0) mmol/L Potassium 3.4 L (3.5-5.1) mmol/L POC Chloride 103 (101-112) mmol/L Chloride 106 (98-107) mmol/L Carbon Dioxide 22 (21-32) mmol/L POC Total CO2 20 L (24-31) mmol/L Anion Gap 7 (3-11) POC Anion Gap 19.0 (16-25) mmol/L POC BUN 6 L (7-18) mg/dl BUN 8 (6-23) mg/dl Creatinine 0.61 (0.6-1.2) mg/dl POC Creatinine 0.5 L (0.6-1.3) mg/dl Est Cr Clr Drug Dosing 125.5 ml/min Est GFR ( Amer) 138.1 ml/min Est GFR (Non-Af Amer) 119.1 ml/min BUN/Creatinine Ratio 13.1 (10-20) Glucose 130 H (70-99(Fasting)) mg/dl POC Glucose (other) 130 H (70-99) mg/dl Calcium 8.6 (8.6-10.3) mg/dl POC Ioniz Calcium Venecia 1.12 (1.12-1.32) mmol/l Total Bilirubin 0.6 (0.2-1.0) mg/dl AST 11 L (13-39) U/L ALT 10 (7-52) U/L Alkaline Phosphatase 37 (34-104) U/L Total Protein 6.4 (6.0-8.3) gm/dl Albumin 4.2 (3.4-5.0) gm/dl Globulin 2.2 L (2.5-4.0) gm/dl Albumin/Globulin Ratio 1.9 (0.9-2) HCG, Quant 81590 mIU/ml Blood Type O Positive Antibody Screen NEGATIVE Crossmatch See Detail 06/12/23 Range/Units 08:17 WBC 17.71 H (4.8-10.8) K/ul RBC 3.09 L (4.20-5.40) M/uL Hgb 9.4 L (12.0-16.0) g/dl POC Hgb (12.0-16.0) g/dl Hct 26.4 L (37.0-47.0) % POC Hct (37-47) % MCV 85.4 (80.0-100.0) fL MCH 30.4 (25.0-34.0) pg MCHC 35.6 (32.0-36.0) g/dL RDW Std Deviation 40.0 (36.4-46.3) fL RDW Coeff of Kaiser 13.0 (11.5-14.5) % Plt Count 185 (130-400) K/uL MPV 10.9 (9.4-12.4) fL Immature Gran % (Auto) 0.5 % Neut % (Auto) 89.0 % Lymph % (Auto) 6.7 % Gordon % (Auto) 3.6 % Eos % (Auto) 0.0 % Baso % (Auto) 0.2 % Neut # (Auto) 15.77 H (1.40-6.50) K/uL Lymph # (Auto) 1.18 L (1.20-3.40) K/uL Gordon # (Auto) 0.64 H (0.11-0.59) K/uL Eos # (Auto) 0.00 (0.00-0.50) K/uL Baso # (Auto) 0.03 (0.00-0.20) K/uL Immature Gran # (Auto) 0.09 (0.01-0.20) K/uL PT (9.0-12.0) Seconds INR (0.9-1.1) POC Sodium (135-144) mmol/L Sodium (136-145) mmol/L POC Potassium (3.3-5.0) mmol/L Potassium (3.5-5.1) mmol/L POC Chloride (101-112) mmol/L Chloride (98-107) mmol/L Carbon Dioxide (21-32) mmol/L POC Total CO2 (24-31) mmol/L Anion Gap (3-11) POC Anion Gap (16-25) mmol/L POC BUN (7-18) mg/dl BUN (6-23) mg/dl Creatinine (0.6-1.2) mg/dl POC Creatinine (0.6-1.3) mg/dl Est Cr Clr Drug Dosing ml/min Est GFR ( Amer) ml/min Est GFR (Non-Af Amer) ml/min BUN/Creatinine Ratio (10-20) Glucose (70-99(Fasting)) mg/dl POC Glucose (other) (70-99) mg/dl Calcium (8.6-10.3) mg/dl POC Ioniz Calcium Venecia (1.12-1.32) mmol/l Total Bilirubin (0.2-1.0) mg/dl AST (13-39) U/L ALT (7-52) U/L Alkaline Phosphatase (34-104) U/L Total Protein (6.0-8.3) gm/dl Albumin (3.4-5.0) gm/dl Globulin (2.5-4.0) gm/dl Albumin/Globulin Ratio (0.9-2) HCG, Quant mIU/ml Blood Type Antibody Screen Crossmatch PE: General: Alert, orientedx3, NAD CVS: S1S2 RRR Lungs: CTAB Abd: soft, NT, ND, BS+, Incisions C/D/I No VB Ext: NT, no edema/ erythema AP: 32 yo female s/p Op Laparoscopy for bleeding ectopic , pod#0 VSS Afebrile doing well Continue to routine postop care Encourage PO intake, may ambulate Desires d.c now Results & Data Vital Signs (Past 12 Hours) Vital Signs Temp Pulse Pulse Resp BP BP Pulse Ox 06/12/23 07:30 36.8 C 70 18 119/75 100 06/12/23 06:30 36.7 C 72 18 121/69 95 06/12/23 03:01 36.5 C 63 20 108/57 L 97 06/12/23 01:01 36.8 C 64 20 107/60 98 06/11/23 23:50 36.8 C 74 18 123/57 L 93 06/11/23 23:20 75 12 129/66 100 06/11/23 23:10 36.8 C 67 16 124/65 100 06/11/23 23:00 77 16 113/64 100 06/11/23 22:50 73 18 130/83 100 06/11/23 22:40 69 18 129/74 100 06/11/23 22:30 75 18 132/66 100 06/11/23 22:25 73 20 129/67 100 06/11/23 22:18 37.5 C 76 23 123/79 100 O2 Del Method O2 Flow Rate 06/12/23 07:30 Room Air 06/12/23 06:30 Room Air 06/12/23 03:01 Room Air 06/12/23 01:01 Room Air 06/11/23 23:50 Room Air 06/11/23 23:20 Nasal Cannula 2 06/11/23 23:10 Nasal Cannula 2 06/11/23 23:00 Nasal Cannula 2 06/11/23 22:50 Room Air 11/03/23 22:40 Room Air 06/11/23 22:30 Room Air 06/11/23 22:25 Room Air 06/11/23 22:18 Room Air
--- NOTE | 2023-06-13 17:39 | Electrocardiogram Report ---
Test Reason : Blood Pressure : / mmHG Vent. Rate : 059 BPM Atrial Rate : 059 BPM P-R Int : 108 ms QRS Dur : 074 ms QT Int : 432 ms P-R-T Axes : 058 071 006 degrees QTc Int : 427 ms Sinus bradycardia with short TX Nonspecific T wave abnormality Abnormal ECG No previous ECGs available Confirmed by Dieudonne Dill ([id number]) on 06/13/2023 5:39:15 PM Referred By: REFERRED SELF Confirmed By:Dieudonne Dill
--- OUTSIDE RECORDS SUMMARY | 2023-06-18 07:48 | External Medical Summary | Summary of Care ---
Author Name Unknown Organization [facility] Address [address] [place] [address] Phone [phone] Care Team Providers Care Manager Investigations Name Role Phone Haley Felder MD Primary Care Provider [phone] Reason for Visit * Reason Comments Outpatient Testing Encounter Details Date Type Department Care Team (Late st Contact Info) Description 06/08/2023 10:30 AM EDT Laboratory Laboratory [address] [place] [phone] [place], Lab [address] [place] [address] Leukocytosis, unspecified type; Amenorrhea, primary Allergies No known active allergiesdocumented as of this encounter (statuses as of 06/08/2023) Medications Medication Sig Dispensed Refills Start Date End Date Status Miracle-3 1000 MG Oral Capsule Take by mouth. 0 Active Frojj-Deq-Psze 0.25 MG Oral Tablet Chewable Take by mouth. 0 Active Forte Oral TabletIndications:History of multiple miscarriages 1 daily 0 12/10/2022 Active documented as of this encounter (statuses as of 06/08/2023) Active Problems Problem Noted Date Diagnosed Date History of multiple miscarriages 12/10/2022 Tobacco use disorder 12/10/2022 Intramural leiomyoma of uterus 12/10/2022 Excessive caffeine intake 12/10/2022 Anxiety 03/09/2014 Seasonal allergic rhinitis due to pollen 003 documented as of this encounter (statuses as of 06/08/2023) Resolved Problems Problem Noted Date Diagnosed Date Resolved Date Food insecurity 05/19/2021 12/16/2022 Overview: Per [facility] Protocol 05/06/2021 12/10/2022 Overview: Problem Action Taken Date entered Entered by Date resolved H/o MAB times 2 Support given 05/06/2021 Chelita Diop RN 05/06/2021 Nutrition due date letter given for WIC 05/06/2021 Chelita Diop RN 05/06/2021 smoker Cessation discussed 05/06/2021 Chelita Diop RN 05/06/2021 Supervision of other normal 05/06/2021 12/10/2022 Tobacco smoking affecting pr egnancy, antepartum 05/06/2021 12/10/2022 PAIN BACK, LOW 12/21/2006 12/10/2022 Menstruation, irregular 11/15/2006 05/0 11/2022 Other acne 04/11/2003 12/10/2022 Asthma with severity to be determined 12/10/2022 Overview: ICD-10 update of inactive term documented as of this encounter (statuses as of 06/08/2023) Immunizations Name Administration Dates Next Due H1N1 2009 Influenza, Intranasal 08/19/2009 HPV Vaccine, 4-Valent 03/28/2008,11/17/2007,020 12/2007 Meningococcal Conjugate Vacc ine (Menactra/Menveo) 10/01/2006 PPD 01/18/2012, 1,02/17/2010,01/21,12/27/2007 Pneumococcal Conjugate Vacci ne, 20-valent ([id number]) 12/10/2022 Seasonal Influenza, Split, I IV3, With Preserve, Inj 06/13/2010,08/19/2009 TD, Preservative Free 12/10/2022 TDAP (age 11 and older)(Adacel) 11/17/2007 documented as of this encounter Social History Tobacco Use Types Packs/Day Years Used Date Smoking Tobacco: Every Day Cigarettes 1 13 Smokeless Tobacco: Never Alcohol Use Standard Drinks/Week Comments Yes 0 (1 standard drink = 0.6 oz pur e alcohol) social PHQ-2 Answer Date Recorded PHQ Adult Total Score 0 12/10/2022 Hunger Vital Sign Answer Date Recorded Within the past 12 months, y ou worried that your food would run out before you got the money to buy more. Never true 12/11/19 23 Within the past 12 months, t he food you bought just didn't last and you didn't have money to get more. Never true 12/10/2022 [place] Depression Scale Answer Date Recorded [place] Depression Scale Total 4 05/06/2021 The thought of harming myself has occurred to me . Never 05/06/2021 Sex and Gender Information Value Date Recorded Sex Assigned at Not on file Gender Identity Not on file Sexual Orientation Not on file Job Start Date Occupation Industry Not on file Not on file Not on file documented as of this encounter Plan of Treatment Upcoming Encounters Date Type Department Care Team (Late st Contact Info) Description 06/14/2023 9:00 AM EST Office Visit General Internal Medicine Eric Diop [place] [address] [facility] [place] [address] Haley Felder MD [address] [place] [address] Pending Results Name Type Priority Associated Diagnoses Date /Time CBC WITH WBC DIFFERENTIAL Lab Routine Leukocytosis, unspecified type 06/08/2023 10:36 AM EDT BETA-HCG, QUANTITATIVE Lab Routine Amenorrhea, primary 06/08/2023 10:36 AM EDT CBC Lab Routine Leukocytosis, unspecified type 06/08/2023 10:36 AM EDT DIFFERENTIAL, AUTOMATED Lab Routine Leukocytosis, unspecified type 06/08/2023 10:36 AM EDT Health Maintenance Due Date Last Done Comments COVID-19 Vaccine (#1) 04/10/1990 HIV Screening 2004 Hepatitis C Screening 10/09/2007 HPV/Co-Test 10/09/2019 Influenza Vaccine (FLU shot) (#1) 2023 010, 08/19/2009 Depression Screening 12/11/2023 12/10/2022 Cervical Cancer Screening 05/06/2024 Pap Smear 05/06/2024 05/06/2021, 06/09, 04/10/2011, Additional history exists DTaP,Tdap,and Td Vaccines (8 - Td or Tdap) 12/10/2032 12/10/2022, 11/17/2007, 05/12/2002, Additional history exists Hepatitis B Completed 11/05/1992, 04/10, 02/20/1992 MENINGOCOCCAL (MENACTRA/MENVEO) Completed GARDASIL-HPV IMMUNIZATION SERIES Completed 03/28/2008, 11/17/2007, 09/13/2007 Pneumococcal Vaccine: Pediat rics (0 to 5 Years) and At-Risk Patients (6 to 64 Years) Completed 12/10/2022 documented as of this encounter Medical Devices Not on filedocumented as of this encounter Visit Diagnoses Diagnosis Leukocytosis, unspecified type Amenorrhea, primary Absence of menstruation documented in this encounter Care Teams Manager Investigations Relationship Specialty Start Date End Date Haley Felder MD [address] [facility] [place] [address] PCP - General Internal Medicine 12/10/22 documented as of this encounter
--- OUTSIDE RECORDS SUMMARY | 2023-06-18 07:48 | External Medical Summary | Summary of Care ---
Author Name Unknown Organization [facility] Address [address] [place] [address] Phone [phone] Care Team Providers Care Firearms Inspector Name Role Phone Haley Felder MD Primary Care Provider [phone] Reason for Visit * Reason Comments Outpatient Testing Encounter Details Date Type Department Care Team (Late st Contact Info) Description 06/10/2023 1:30 PM EDT Laboratory Laboratory [address] [place] [phone] [place], Lab [address] [place] [address] Amenorrhea, primary Allergies No known active allergiesdocumented as of this encounter (statuses as of 06/10/2023) Medications Medication Sig Dispensed Refills Start Date End Date Status Trinidad-3 1000 MG Oral Capsule Take by mouth. 0 Active Nzdfb-Eqd-Ybuv 0.25 MG Oral Tablet Chewable Take by mouth. 0 Active Forte Oral TabletIndications:History of multiple miscarriages 1 daily 0 12/10/2022 Active documented as of this encounter (statuses as of 06/10/2023) Active Problems Problem Noted Date Diagnosed Date History of multiple miscarriages 12/10/2022 Tobacco use disorder 12/10/2022 Intramural leiomyoma of uterus 12/10/2022 Excessive caffeine intake 12/10/2022 Anxiety 03/09/2014 Seasonal allergic rhinitis due to pollen 003 documented as of this encounter (statuses as of 06/10/2023) Resolved Problems Problem Noted Date Diagnosed Date [...] as of this encounter (statuses as of 06/10/2023) Immunizations Name Administration Dates Next Due H1N1 2009 Influenza, Intranasal 08/19/2009 HPV Vaccine, 4-Valent 03/28/2008,11/17/2007,12/2007 Meningococcal Conjugate Vacc ine (Menactra/Menveo) 10/01/2006 PPD 01/18/2012, 1,02/17/2010,01/21,12/27/2007 Pneumococcal Conjugate Vacci ne, 20-valent ([id number]) 12/10/2022 Seasonal Influenza, Split, I IV3, With [...] money to get more. Never true 12/10/2022 [place] Depression Scale Answer Date Recorded [place] Depression Scale Total 4 05/06/2021 The thought of harming myself has occurred to me . Never 05/06/2021 Sex and Gender Information Value Date Recorded Sex Assigned at Not on file Gender Identity Not on file Sexual Orientation Not on file Job Start Date Occupation Industry Not on file Not on file Not on file documented as of this encounter Plan of Treatment Pending Results Name Type Priority Associated Diagnoses Date /Time BETA-HCG, QUANTITATIVE Lab Routine Amenorrhea, primary 06/10/2023 1:37 PM EDT Health Maintenance Due Date Last Done [...] Completed 11/05/1992, 04/10, 02/20/1992 MENINGOCOCCAL (MENACTRA/MENVEO) Completed 7 GARDASIL-HPV IMMUNIZATION SERIES Completed 03/28/2008, 11/17/2007, 09/13/2007 Pneumococcal Vaccine: Pediat rics (0 to 5 Years) and At-Risk Patients (6 to 64 Years) Completed 12/10/2022 documented as of this encounter Medical Devices Not on filedocumented as of this encounter Visit Diagnoses Diagnosis Amenorrhea, primary Absence of menstruation documented in this encounter Care Teams Firearms Inspector Relationship Specialty Start Date End Date Haley Felder MD [address] [place] [address] PCP - General Internal Medicine 12/10/22 documented as of this encounter
--- OUTSIDE RECORDS SUMMARY | 2023-06-18 07:48 | External Medical Summary | Summary of Care ---
Author Name Unknown Organization [facility] Address [address] [place] [address] Phone [phone] Care Team Providers Care Employee Communications Specialist Name Role Phone Haley Felder MD Primary Care Provider [phone] Reason for Visit * Reason Onset Date Comments Referral 01/12/2023 Fertility Geneti cs Referral Encounter Details Date Type Department Care Team Description 01/12/2023 Telephone Waste Transportation Technician Obstetrics Maternal Medicine, [place] [address] [place] [address] Dayanna Amaro CHRA Referral (Fertility Genetics Referral ) Allergies No known active allergiesdocumented as of this encounter (statuses as of 01/19/2023) Medications Medication Sig Dispensed Refills Start Date End Date Status Bennet-3 1000 MG Oral Capsule Take by mouth. 0 Active Lbkas-Lng-Osld 0.25 MG Oral Tablet Chewable Take by mouth. 0 Active Forte Oral TabletIndications:History of multiple miscarriages 1 daily 0 12/10/2022 Active documented as of this encounter (statuses as of 01/19/2023) Active Problems Problem Noted Date History of multiple miscarriages 023 Tobacco use disorder 12/10/2022 Intramural leiomyoma of uterus 3 Excessive caffeine intake 12/10/2022 Anxiety 03/09/2014 Seasonal allergic rhinitis due to pollen 04/11/2003 documented as of this encounter (statuses as of 01/19/2023) Resolved Problems Problem Noted Date Resolved Date Food insecurity 05/19/2021 12/16/2022 [...] other normal 05/06/2021 12/10/2022 Tobacco smoking affecting , antepartum 05/06/2021 12/10/2022 PAIN BACK, LOW 12/21/2006 12/10/2022 Menstruation, irregular 11/15/2006 12/11/19 Other acne 04/11/2003 12/10/2022 Asthma with severity to be determined 12/10/2022 Overview: ICD-10 update of inactive term documented as of this encounter (statuses as of 01/19/2023) Immunizations Name Administration Dates Next Due DTP Vaccine 11/04/1993, 1,04/19/1990,02/16,1989 H1N1 2009 Influenza, Intranasal 08/19/2009 HPV Vaccine, 4-Valent 03/28/2008,11/17/2007,12/2007 Haemophilus B (HIB) 02/07/1991,09/27/1990,1989 Hepatitis B Vaccine 11/05/1992,05/03/1992,1991 MMR - Measles/Mumps/Rubella Vaccine 01/03/1994,0 02/07/1991 Meningococcal Conjugate Vacc ine (Menactra/Menveo) 10/01/2006 OPV - Polio Virus Vaccine (Oral) 994,04/18/1991,04/19/1990,02/16,1989 PPD 01/18/2012, 1,02/17/2010,01/21,12/27/2007 Pneumococcal Conjugate Vacci ne, 20-valent ([id number]) 12/10/2022 Seasonal Influenza, Split, I IV3, With Preserve, Inj 06/13/2010,08/19/2009 TB Zaida Test 12/03/1994, 4,11/06/1991,09/27 TD - Tetanus/Diptheria (ADULT) 05/12/2002 TD, Preservative Free 12/10/2022 TDAP (age 11 and older)(Adacel) 11/17/2007 documented as of this encounter Social History Tobacco Use Types Packs/Day Years Used Date Smoking Tobacco: Every Day Cigarettes 1 13 Smokeless Tobacco: Never Alcohol Use Standard Drinks/Week Comments Yes 0 (1 standard drink = 0.6 oz pur e alcohol) social Food Insecurity Answer Date Recorded Within the past 12 months, y ou worried that your food would run out before you got money to buy more. Never true 12/10/2022 Within the past 12 months, t he food you bought just didn't last and you didn't have money to get more. Never true 12/10/2022 Sex Assigned at Date Recorded Not on file Job Start Date Occupation Industry Not on file Not on file Not on file documented as of this encounter Miscellaneous Notes * Telephone Encounter - CLAU Campos - 01/19/2023 2:17 PM EDT Second attempt to contact the pt about their recent fertility referral. No answer, unable to leave message as the mailbox is full. Respectfully, Dayanna Amaro Genetic Counseling [facility] For further questions call the Genetic Counselor at + . * Telephone Encounter - CLAU Campos - 01/12/2023 12:24 PM EDT Attempted to contact the pt about their recent fertility referral. No answer, unable to leave message as the mailbox is full. MyG sent with details. Respectfully, Dayanna Amaro Genetic Counseling [facility] For further questions call the Genetic Counselor at + . * Telephone Encounter - CLAU Campos - 01/12/2023 12:23 PM EDT GENETICS REFERRAL Referring provider: [place] Reason for referral: Recurrent loss Potential for IVF/PGT-A/carrier screening Please schedule for either in person or telemedicine visit with genetic counselor. Visit can be in person "genetic counseling MFM" or "new video visit home." Visit type is based on patient preferenceand genetic counselor in person availability. Respectfully, Dayanna Amaro Genetic Counseling [facility] For further questions call the Genetic Counselor at + . documented in this encounter Plan of Treatment Upcoming Encounters Date Type Specialty Care Team Description 06/14/2023 Office Visit Internal Medicine Haley Felder MD [address] [place] [address] [place] [id number] Health Maintenance Due Date Last Done Comments COVID-19 Vaccine (#1) 04/10/1990 HIV Screening 2004 Hepatitis C Screening 10/09/2007 Influenza Vaccine (FLU shot) (Season Ended) 2023 06/13/2010, 08/19/2009 Depression Screening, Annual for Pts 12 and Over 12/11/2023 12/10/2022 Pap Smear 05/06/2026 05/06/2021, 06/09, 04/10/2011, Additional history exists DTaP,Tdap,and [...] Not on filedocumented as of this encounter Care Teams Employee Communications Specialist Relationship Specialty Start Date End Date Haley Felder MD [address] [place] [address] PCP - General Internal Medicine 12/10/22 documented as of this encounter
--- OUTSIDE RECORDS SUMMARY | 2023-06-18 07:48 | External Medical Summary ---
Author Name Unknown Address Unknown Organization [id number]:[facility] [place] [address] [facility] [address] Laboratory Report Ordering Provider Test Date Status DOMINGO WALLACE GARIMASHERIMILANA 06/08/2023 10:36:50 Final Q48 hours

hCG can s erve as a screening assay for . However, early may not give a positive hCG test result. In addition, some non- women may have a hCG result slightly higher than the reference limit. Careful interpretation of the hCG with clinical history is required to determine whether the patient may be . Observation Date Value Abnormality Reference (Units ) Status Choriogonadotropin.in tact+Beta subunit [Units/volume] in Serum or Plasma 06/08/2023 10:36:50 69346.0 Above high normal <=1.0 (mIU/mL) Final Performing Location [facility] [place] - [facility] [address] [facility] [address]
--- OUTSIDE RECORDS SUMMARY | 2023-06-18 07:48 | External Medical Summary ---
Author Name Unknown Address Unknown Organization [id number]:LABORATORY [facility] [place] - [address] [facility] [address] Laboratory Report Ordering Provider Test Date Status MARCELLUSSUSANNA 06/08/2023 10:36:50 Final Observation Date Value Abnormality Reference (Units ) Status SYNC LEUKOCYTES IN BLOOD BY AUTOMATED COUNT 06/08/2023 10:36:50 12.27 Above high normal 4.00-10.80 (K/uL) Final Segs 06/08/2023 10:36:50 66.5 40.0-75.0 (%) Final Lymphs % 06/08/2023 10:36:50 23.8 18.0-42.0 (%) Final Monos 06/08/2023 10:36:50 6.8 1.0-11.0 (%) Final Eosinophils 06/08/2023 10:36:50 1.9 0.0-6.0 (%) Final Basos 06/08/2023 10:36:50 0.7 0.0-2.0 (%) Final Immature Granulocyte, Percent 06/08/2023 10:36:50 0.3 0.0-2.0 (%) Final Absolute Segs 06/08/2023 10:36:50 8.16 Above high normal 1.80-7.70 (K/uL) Final Lymphs, absolute 06/08/2023 10:36:50 2.92 1.00-4.80 (K/ul) Final Monos, Abs 06/08/2023 10:36:50 0.84 0.00-1.10 (K/uL) Final Eos, Abs 06/08/2023 10:36:50 0.23 0.00-0.70 (K/uL) Final Basos, Abs 06/08/2023 10:36:50 0.08 0.00-0.20 (K/uL) Final Immature Granulocytes, Number 06/08/2023 10:36:50 0.04 0.00-0.20 (K/uL) Final Performing Location LABORATORY [facility] [place] - [address] [facility] [address]
--- OUTSIDE RECORDS SUMMARY | 2023-06-18 07:48 | External Medical Summary ---
Author Name Unknown Address Unknown Organization [id number]:LABORATORY [facility] [place] - [facility] [place] [address] Laboratory Report Ordering Provider Test Date Status SUSANNA GERMAIN 06/08/2023 10:36:50 Final Observation Date Value Abnormality Reference (Units ) Status WBC, Total 06/08/2023 10:36:50 12.27 Above high normal 4.00-10.80 (K/uL) Final RBC 06/08/2023 10:36:50 4.53 3.85-5.15 (M/uL) Final Hemoglobin 06/08/2023 10:36:50 13.6 12.0-15.3 (g/dL) Final HCT 06/08/2023 10:36:50 41.0 36.0-45.2 (%) Final MCV 06/08/2023 10:36:50 90.5 81.5-97.5 (fL) Final MCH 06/08/2023 10:36:50 30.0 27.0-34.0 (pg) Final MCHC 06/08/2023 10:36:50 33.2 32.0-36.0 (g/dL) Final RDW 06/08/2023 10:36:50 13.0 11.5-15.5 (%) Final Platelets 06/08/2023 10:36:50 235 140-400 (K/uL) Final MPV 06/08/2023 10:36:50 11.2 6.6-11.1 (fL) Final Nucleated erythrocytes/100 leukocytes [Ratio] in Blood by Automated count 06/08/2023 10:36:50 0 <=0 (/100 WBCs) Final Performing Location LABORATORY [facility] [place] - [address] [place] [address]
--- OUTSIDE RECORDS SUMMARY | 2023-06-18 07:48 | External Medical Summary | Summary of Care ---
Author Name Unknown Organization [facility] Address [address] [place] [address] Phone [phone] Care Team Providers Care Raspberry Checker Name Role Phone Haley Felder MD Primary Care Provider [phone] Reason for Visit * Reason Onset Date Comments FYI 12/11/2022 Encounter Details Date Type Department Care Team (Late st Contact Info) Description 12/11/2022 Telephone [facility] [address] [place] [address] Keren Wetzel PA-C [address] [place] [address] FYI Allergies No known active allergiesdocumented as of this encounter (statuses as of 06/10/2023) Medications Medication Sig Dispensed Refills Start Date End Date Status Hemet-3 1000 MG Oral Capsule Take by mouth. 0 Active Gsmzv-Wfk-Hevq 0.25 MG Oral Tablet Chewable Take by [...] 01/18/2012, 1,02/17/2010,01/21,12/27/2007 Pneumococcal Conjugate Vacci ne, 20-valent ([id number]) 12/10/2022 Seasonal Influenza, Split, I IV3, With [...] money to buy more. Never true 12/11/19 Within the past 12 months, t he food you bought just didn't last and you didn't have money to get more. Never true 12/10/2022 Alfred Depression Scale Answer Date Recorded Alfred Depression Scale Total 4 05/06/2021 The thought [...] encounter Miscellaneous Notes * Telephone Encounter - Randy Hagan OSA - 12/11/2022 1:16 PM EDT Pt called to say she will complete the fasting labs on Wednesday morning. documented in this encounter Plan of Treatment Health Maintenance Due Date Last Done Comments [...] filedocumented as of this encounter Care Teams Raspberry Checker Relationship Specialty Start Date End Date Haley Felder MD [address] [facility] [place] [address] PCP - General Internal Medicine 12/10/22 documented as of this encounter
--- OUTSIDE RECORDS SUMMARY | 2023-06-18 07:48 | External Medical Summary | Summary of Care ---
Author Name Unknown Organization [facility] Address [address] [place] [address] Phone [phone] Care Team Providers Care Digital Marketing Consultant Name Role Phone Haley Felder MD Primary Care Provider [phone] Reason for Visit * Reason Onset Date Comments Referral 01/12/2023 Fertility Geneti cs Referral Encounter Details Date Type Department Care Team Description 01/12/2023 Telephone Endocrinology Physician Obstetrics Maternal Medicine, [place] [address] [place] [address] Dayanna Amaro CHRA Referral (Fertility Genetics Referral ) Allergies No known active allergiesdocumented as of this encounter (statuses as of 01/12/2023) Medications Medication Sig Dispensed Refills Start Date End Date Status [place]-3 1000 MG Oral Capsule Take by mouth. 0 Active Ofyvh-Irh-Vwsd 0.25 MG Oral Tablet Chewable Take by mouth. 0 Active Forte Oral TabletIndications:History of multiple miscarriages 1 daily 0 12/10/2022 Active documented as of this encounter (statuses as of 01/12/2023) Active Problems Problem Noted Date History of multiple miscarriages 023 Tobacco use disorder 12/10/2022 Intramural leiomyoma of uterus 3 Excessive caffeine intake 12/10/2022 Anxiety 03/09/2014 Seasonal allergic rhinitis due to pollen 04/11/2003 documented as of this encounter (statuses as of 01/12/2023) Resolved Problems Problem Noted Date Resolved Date [...] as of this encounter (statuses as of 01/12/2023) Immunizations Name Administration Dates Next Due H1N1 2009 Influenza, Intranasal 08/19/2009 HPV Vaccine, 4-Valent 03/28/2008,11/17/2007,12/2007 Meningococcal Conjugate Vacc ine (Menactra/Menveo) 10/01/2006 PPD 01/18/2012, 1,02/17/2010,01/21,12/27/2007 Pneumococcal Conjugate Vacci ne, 20-valent ([id number]) 12/10/2022 Seasonal Influenza, Split, I IV3, With [...] with details. Respectfully, Dayanna Amaro Genetic Counseling Director [employer] Maternal Medicine For further questions call the [...] person availability. Respectfully, Dayanna Amaro Genetic Counseling Director [employer] Maternal Medicine For further questions call the Genetic Counselor at + . documented in this encounter Plan of Treatment Upcoming Encounters Date Type Specialty Care Team Description 06/14/2023 Office Visit Internal Medicine Haley Felder MD [address] [place] [address], [place] [address] Health Maintenance Due Date Last Done Comments [...] filedocumented as of this encounter Care Teams Digital Marketing Consultant Relationship Specialty Start Date End Date Haley Felder MD [address] [place] [address] PCP - General Internal Medicine 12/10/22 documented as of this encounter
--- OUTSIDE RECORDS SUMMARY | 2023-06-18 07:48 | External Medical Summary | Summary of Care ---
Author Name Unknown Organization [facility] Address [address] [place] [address] Phone [phone] Care Team Providers Care Community Mental Health Social Worker Name Role Phone Haley Felder MD Primary Care Provider [phone] Encounter Details Date Type Department Care Team (Late st Contact Info) Description 06/07/2023 Telephone Gynecology/Obstetrics [facility] [address] [place] [address] Fredo Eckert MD [address] [facility] [place] [address] Allergies No known active allergiesdocumented as of this encounter (statuses as of 06/09/2023) Medications Medication Sig Dispensed Refills Start Date End Date Status Rock[place]-3 1000 MG Oral Capsule Take by mouth. 0 Active Rkcip-Mjd-Ilty 0.25 MG Oral Tablet Chewable Take by mouth. 0 Active Forte Oral TabletIndications:History of multiple miscarriages 1 daily 0 12/10/2022 Active documented as of this encounter (statuses as of 06/09/2023) Active Problems Problem Noted Date Diagnosed Date History of multiple miscarriages 12/10/2022 Tobacco use disorder 12/10/2022 Intramural leiomyoma of uterus 12/10/2022 Excessive caffeine intake 12/10/2022 Anxiety 03/09/2014 Seasonal allergic rhinitis due to pollen 003 documented as of this encounter (statuses as of 06/09/2023) Resolved Problems Problem Noted Date Diagnosed Date [...] as of this encounter (statuses as of 06/09/2023) Immunizations Name Administration Dates Next Due DTP Vaccine 11/04/1993, 1,04/19/1990,02/16,1989 H1N1 2009 Influenza, Intranasal 08/19/2009 HPV Vaccine, 4-Valent 03/28/2008,11/17/2007,12/2007 Haemophilius B (HIB), unspecified 02/07/1991,,07/26/1990 Hepatitis B Vaccine 11/05/1992,05/03/1992,1991 MMR - Measles/Mumps/Rubella Vaccine 01/03/1994,0 02/07/1991 Meningococcal Conjugate Vacc ine (Menactra/Menveo) 10/01/2006 OPV - Polio Virus Vaccine (Oral) 994,04/18/1991,04/19/1990,02/16,1989 PPD 01/18/2012, 1,02/17/2010,01/21,12/27/2007 Pneumococcal Conjugate Vacci ne, 20-valent ([id number]) 12/10/2022 Seasonal Influenza, Split, I IV3, With [...] money to get more. Never true 12/10/2022 [place] Depression Scale Answer Date Recorded [place] Depression Scale Total 4 05/06/2021 The thought [...] encounter Miscellaneous Notes * Telephone Encounter - Miroslava Castellanos RN - 06/09/2023 2:40 PM EDT Patient calling in today. Had BHCG yesterday and it was 35,197. Patient has standing order for BHCG, Advised that Dr. Shaffer will review results tomorrow when she is back surety bond agent and that she can get Bhcg again tomorrow as the order is for Q48 hours. Patient states her pain has resolved and denies any bleeding or concerns. She is aware to call back in with any concerns. * Telephone Encounter - Chelita Diop RN - 06/07/2023 2:55 PM EDT Pt aware. Advised to call the following day to get the results. Pt agreeable. * Telephone Encounter - Chelita Diop RN - 06/07/2023 12:56 PM EDT Pt's lmp was 04/24/2023 approximately. She missed her period and took a upt yesterday and it was positive. Pt has had 3 prior MAB. She denies any bleeding. She had pain in her belly last night. She was unsure it was gas pain. She moved her bowels and it went away. She had it happen a few today sincethen. Describes her pain currently as if she feels tender. Nothing severe. Pt asking if she could have labs to confirm. Pt can be reached at [phone] or [phone] documented in this encounter Plan of Treatment Upcoming Encounters Date Type Department Care Team (Late st Contact Info) Description 06/14/2023 9:00 AM EST Office Visit General Internal Medicine [place] [facility] [place] [address] [facility] [place] [address] Haley Felder MD [address] [facility] [place] [address] Scheduled Orders Name Type Priority Associated Diagnoses Orde r Schedule BETA-HCG, QUANTITATIVE Lab Routine Amenorrhea, primary Other, Please specify in Comments field for 5 Occurrences starting 06/07/2023 until 06/07/2024, 1 completed Health Maintenance Due Date Last Done Comments [...] Not on filedocumented as of this encounter Results * (ABNORMAL) BETA-HCG, QUANTITATIVE (06/08/2023 10:36 AM EDT) [facility] Beta-HCG, Quantitative 35,197.0( H) <=1.0 mIU/mL 06/09/2023 6:49 AM EDT LABORATORY [facility] Blood Venous blood specimen / Unknown Venipuncture / Unknown 06/08/2023 10:36 AM EDT 06/08/2023 10:36 AM EDT Narrative LABORATORY [facility] - 06/09/2023 6:49 AM EDT hCG can serve as a screening assay for . However, early may not give a positive hCG test result. In addition, some non- women may have a hCG result slightly higher than the reference limit. Careful interpretation of the hCG with clinical history is required to determine whether the patient may be . Fredo Mccarty MD LAB BLOOD ORDERA BLES LABORATORY [facility] [address] [place] [address] documented in this encounter Visit Diagnoses Diagnosis Amenorrhea, primary- Primary Absence of menstruation documented in this encounter Care Teams Community Mental Health Social Worker Relationship Specialty Start Date End Date Haley Felder MD [address] [facility], [place] [id number] PCP - General Internal Medicine 12/10/22 documented as of this encounter
--- OUTSIDE RECORDS SUMMARY | 2023-06-18 07:48 | External Medical Summary | Summary of Care ---
Author Name Unknown Organization [facility] Address [address] [place] [address] Phone [phone] Care Team Providers Care Principal Java Software Engineer Name Role Phone Haley Felder MD Primary Care Provider [phone] Encounter Details Date Type Department Care Team Description 12/27/2022 Result Scan Unspecified Department <No scans attached> Allergies No known active allergiesdocumented as of this encounter (statuses as of 12/28/2022) Medications Medication Sig Dispensed Refills Start Date End Date Status Ne[place]-3 1000 MG Oral Capsule Take by mouth. 0 Active Mkzov-Buz-Didz 0.25 MG Oral Tablet Chewable Take by mouth. 0 Active Forte Oral TabletIndications:History of multiple miscarriages 1 daily 0 12/10/2022 Active documented as of this encounter (statuses as of 12/28/2022) Active Problems Problem Noted Date History of multiple miscarriages 023 Tobacco use disorder 12/10/2022 Intramural leiomyoma of uterus 3 Excessive caffeine intake 12/10/2022 Anxiety 03/09/2014 Seasonal allergic rhinitis due to pollen 04/11/2003 documented as of this encounter (statuses as of 12/28/2022) Resolved Problems Problem Noted Date Resolved Date [...] as of this encounter (statuses as of 12/28/2022) Immunizations Name Administration Dates Next Due H1N1 2008 Influenza, Intranasal 08/19/2009 HPV Vaccine, 4-Valent 03/28/2008,11/17/2007,12/2007 Meningococcal Conjugate Vacc ine (Menactra/Menveo) 10/01/2006 PPD 01/18/2012, 1,02/17/2010,01/21,12/27/2007 Pneumococcal Conjugate Vacci ne, 20-valent ([id number]) 12/10/2022 Seasonal Influenza, Split, I IV3, With [...] Encounters Date Type Specialty Care Team Description 01/12/2023 Office Visit Fertility Keren Wetzel PA-C [address] [place] [address] 06/14/2023 Office Visit Internal Medicine Haley Felder MD [address] [place] [address] Health Maintenance Due Date Last Done Comments [...] Not on filedocumented as of this encounter Procedures Procedure Name Priority Date/Time Associated Diagnosis Comments OUTSIDE LAB RESULTS 12/27/2022 documented in this encounter Results * OUTSIDE LAB RESULTS (12/27/2022) 12/27/2022 No Physician Data Unknown LABORATORY documented in this encounter Care Teams Principal Java Software Engineer Relationship Specialty Start Date End Date Haley Felder MD [address] [place] [address] PCP - General Internal Medicine 12/10/22 documented as of this encounter
--- OUTSIDE RECORDS SUMMARY | 2023-06-18 07:48 | External Medical Summary ---
Author Name Unknown Address Unknown Organization K01:LAB[facility]ORY [facility] - [address] [facility] [address] Laboratory Report Ordering Provider Test Date Status SAMI JAMIL 01/08/2023 09:24:55 Final Observation Date Value Abnormality Reference (Units ) Status Screen, Urine 01/08/2023 09:24:55 Negative Final Performing Location [facility] - [address] [facility] [address] [facility] [address]
--- OUTSIDE RECORDS SUMMARY | 2023-06-18 07:48 | External Medical Summary | Summary of Care ---
Author Name Unknown Organization [facility] Address [address] [place] [address] Phone [phone] Care Team Providers Care [place] Cutter Name Role Phone Haley Felder MD Primary Care Provider [phone] Encounter Details Date Type Department Care Team (Late st Contact Info) Description 06/10/2023 Telephone Gynecology/Obstetrics [facility] [address] [place] [address] Fredo Eckert MD [address] [facility] [place] [address] Allergies No known active allergiesdocumented as of this encounter (statuses as of 06/10/2023) Medications Medication Sig Dispensed Refills Start Date End Date Status [place]-3 1000 MG Oral Capsule Take by mouth. 0 Active Zters-Syq-Olwf 0.25 MG Oral Tablet Chewable Take by [...] 01/18/2012, 1,02/17/2010,01/21,12/27/2007 Pneumococcal Conjugate Vacci ne, 20-valent ([id number]) 12/10/2022 Seasonal Influenza, Split, I IV3, With [...] money to get more. Never true 12/10/2022 [place] Depression Scale Answer Date Recorded [place] Depression Scale Total 4 05/06/2021 The thought [...] encounter Miscellaneous Notes * Telephone Encounter - Alia Thakkar LPN - 06/10/2023 9:28 AM EDT Call placed to patient. No answer, VM is full. Will send MyG. * Telephone Encounter - Alia Thakkar LPN - 06/10/2023 9:22 AM EDT ----- Message from Fredo Mccarty MD sent at 06/10/2023 9:21 AM EDT ----- Please let her know BHCG increased appropriately Recommended to have NOB and US NO NEED TO REPEAT BHCG again Thank you documented in this encounter Plan of Treatment [...] filedocumented as of this encounter Care Teams [place] Cutter Relationship Specialty Start Date End Date Haley Felder MD [address] [place] [address] PCP - General Internal Medicine 12/10/22 documented as of this encounter
--- OUTSIDE RECORDS SUMMARY | 2023-06-18 07:48 | External Medical Summary | Summary of Care ---
Author Name Unknown Organization [facility] Address [address] [place] [address] Phone [phone] Care Team Providers Care Field Laboratory Operator Name Role Phone Haley Felder MD Primary Care Provider [phone] Reason for Visit * Reason Comments Outpatient Testing Encounter Details Date Type Department Care Team Description 01/08/2023 Laboratory Laboratory [address] [place] [address] [place] [address] Fertility testing Allergies No known active allergiesdocumented as of this encounter (statuses as of 01/08/2023) Medications Medication Sig Dispensed Refills Start Date End Date Status [place]-3 1000 MG Oral Capsule Take by mouth. 0 Active Ipuwq-Jzg-Bgtf 0.25 MG Oral Tablet Chewable Take by mouth. 0 Active Forte Oral TabletIndications:History of multiple miscarriages 1 daily 0 12/10/2022 Active documented as of this encounter (statuses as of 01/08/2023) Active Problems Problem Noted Date History of multiple miscarriages 023 Tobacco use disorder 12/10/2022 Intramural leiomyoma of uterus 3 Excessive caffeine intake 12/10/2022 Anxiety 03/09/2014 Seasonal allergic rhinitis due to pollen 04/11/2003 documented as of this encounter (statuses as of 01/08/2023) Resolved Problems Problem Noted Date Resolved Date [...] LOW 12/21/2006 12/10/2022 Menstruation, irregular 11/15/2006 12/11/19 23 Other acne 04/11/2003 12/10/2022 Asthma with severity to be determined 12/10/2022 Overview: ICD-10 update of inactive term documented as of this encounter (statuses as of 01/08/2023) Immunizations Name Administration Dates Next Due H1N1 2009 Influenza, Intranasal 08/19/2009 HPV Vaccine, 4-Valent 03/28/2008,11/17/2007,12/2007 Meningococcal Conjugate Vacc ine (Menactra/Menveo) 10/01/2006 PPD 01/18/2012, 1,02/17/2010,01/21,12/27/2007 Pneumococcal Conjugate Vacci ne, 20-valent ([id number]) 12/10/2022 Seasonal Influenza, Split, I IV3, With [...] Fertility Keren Wetzel PA-C [address] [place] [address] 06/14/2023 Office Visit Internal Medicine Haley Felder MD [address] [facility] [address] Pending Results Name Type Priority Associated Diagnoses Date /Time HCG QUALITATIVE, URINE Lab Routine Fertility testing 01/08/2023 9:24 AM EDT Health Maintenance Due Date Last [...] as of this encounter Visit Diagnoses Diagnosis Fertility testing documented in this encounter Care Teams Field Laboratory Operator Relationship Specialty Start Date End Date Haley Felder MD [address] [facility] [place] [address] PCP - General Internal Medicine 12/10/22 documented as of this encounter
--- OUTSIDE RECORDS SUMMARY | 2023-06-18 07:48 | External Medical Summary ---
Author Name Unknown Address Unknown Organization K01:LABORATORY [place] [address] [address] [facility] [address] [facility] [address] Laboratory Report Ordering Provider Test Date Status DOMINGO WALLACECristopher 06/10/2023 13:37:03 Final Q48 hours

hCG can s erve [...] tact+Beta subunit [Units/volume] in Serum or Plasma 06/10/2023 13:37:03 [address].0 Above high normal <=1.0 (mIU/mL) Final Performing Location LABORATORY [facility] [place] - [facility] [address] [facility] [address]
--- OUTSIDE RECORDS SUMMARY | 2023-06-18 07:48 | External Medical Summary | Summary of Care ---
Author Name Unknown Organization [facility] Address [address] [place] [address] Phone [phone] Care Team Providers Care Emergency Management System Director Name Role Phone Haley Felder MD Primary Care Provider [phone] Reason for Referral * Evaluate & Treat - Unlimited Visits (Within 10 days (routine)) - Pending Review Specialty Diagnoses / Procedures Referred By Verito rizo Referred To Contact Medical Genetics / Hematology Oncology Diagnoses Encounter for procreative genetic counseling Keren Wetzel PA-C [address] [place] [address] Referral ID Status Reason Start Date Expiration Date Visits Requested Visits Authorized [id number] Pending Review Specialty Services Required 01/12/[phone] Question Answer Referral Priority Within 10 days (routine) Is this referral request related to one of the following genetics sub-specialties? If unsure of category, use Medical Genetics Ask-A-Doc. /Preconception Comments Recurrent loss Potential for IVF/PGT-A/carrier screening Reason for Visit * Reason Comments Follow Up Encounter Details Date Type Department Care Team Description 01/12/2023 Office Visit Fertility [facility] [address] [place] [address] Keren Wetzel PA-C [address] [place] [phone] Encounter for procreative genetic counseling* Allergies No known active allergiesdocumented as of this encounter (statuses as of 01/12/2023) Medications Medication Sig Dispensed Refills Start Date End Date Status Hannaford-3 1000 MG Oral Capsule Take by mouth. 0 Active Emujz-Pfr-Fxhp 0.25 MG Oral Tablet Chewable Take by [...] 05/06/2021 Nutrition due date letter given for [place] 05/06/2021 Chelita Diop RN 05/06/2021 smoker Cessation [...] 01/18/2012, 1,02/17/2010,01/21,12/27/2007 Pneumococcal Conjugate Vacci ne, 20-valent ([id number]) 12/10/2022 Seasonal Influenza, Split, I IV3, With Preserve, Inj 06/13/2010,08/19/2009 TD, Preservative Free 12/10/2022 TDAP (age 11 and older)(Adacel) 11/17/2007 documented as of this encounter Social History Tobacco Use Types Packs/Day Years Used Date Smoking Tobacco: Every Day Cigarettes 1 13 Smokeless Tobacco: Never Tobacco Cessation:Ready to Q uit: Not Asked; Counseling Given: Not Answered Alcohol Use Standard Drinks/Week Comments Yes 0 [...] on file documented as of this encounter Last Filed Vital Signs Vital Sign Reading Time Taken Comments Blood Pressure 134/80 01/12/2023 11:09 AM EDT Pulse - - Temperature - - Respiratory Rate - - Oxygen Saturation - - Inhaled Oxygen Concentration - - Weight 59.4 kg (131 lb) 01/12/2023 11:09 AM EDT Height - - Body Mass Index 22.14 12/10/2022 11:29 AM EDT documented in this encounter Progress Notes * Keren Wetzel PA-C - 01/12/2023 11:15 AM EDT Patient's last menstrual period was 11/12/2022. HPI: Janett Rain is a 32 year old female presenting to review results, accompanied by partner. 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 No other pregnancies. Was not TTC but not preventing when conceived all 3 pregnancies, welcomed . 04/2021 - MAB, 8 weeks, was offered cytotec, did not use, presented to ED with severe abdominal pain, had D&C 07/2020 - SAB, 7 weeks, no intervention 11/2016 - SAB, 8 weeks, no intervention No galactorrhea, no hirsutism, weight stable. Past Tube And Rod Straightener History Menarche 11/q ~28d/ 5-6d Last pap: 04/2021 - NILM, -HPV Contraception: oral contraceptives as teen History of STD: No Component Latest Ref Rng 12/11/2022 Cardiolipin IgG Antibody Interpretation Negative Negative Cardiolipin IgG Antibody Value <10 GPL U/mL 1.5 Cardiolipin IgM Antibody Interpretation Negative Negative Cardiolipin IgM Antibody Value <10 MPL U/mL 2.3 Beta-2 Glycoprotein IgG Antibody Intepretation Negative Negative Beta-2 Glycoprotein IgG Antibody Value <7 U/mL <0.8 Beta-2 Glycoprotein IgM Antibody Interpretation Negative Negative Beta-2 Glycoprotein IgM Antibody Value <7 U/mL <2.4 TSH 0.27 - 4.20 uIU/mL 1.29 Anti-Mullerian Hormone (AMH), Female 0.36 - 10.07 ng/mL 2.79 Prolactin 4.8 - 30.0 ng/mL 19.6 Lupus Sensitive aPTT Screen, Normalized Ratio 0.91 - 1.40 1.37 Freeze Extra Plasma Extra plasma will be retained for 1 year. DRVVT Screen Normalized Ratio <=1.20 0.92 12/2022 HSG: Eventual free spillage from both fallopian tubes which suggests . Mildly dilated bilateral fallopian tubes which may reflect hydrosalpinx. Initially no spillage. However, upon further injection, free spillage was noted. Partner: Stevenson Smith. Age 35 (09/09/1987). He fathered all the losses. PMHx none. SurgHx ortho surgeries as child, appendectomy. Shx smokes 1ppd. STD none. Past Medical History: Diagnosis Date Asthma, severity to be determined Other acne Varicella without complication 1993 Current Outpatient Medications Medication Sig Dispense Refill Forte Oral Tablet 1 daily Hannaford-3 1000 MG Oral Capsule Take by mouth. Cqysr-Cip-Mdpp 0.25 MG Oral Tablet Chewable Take by mouth. No current facility-administered medications for this visit. Past Surgical History: Procedure Laterality Date AL CURETTAGE 2020 SHx: Tobacco: Yes, at least 1ppd Family History Problem Relation Age of Onset Arthritis Mother Blood Disorder Mother MGUS Diabetes Mother No Past Hx Father No Past Hx Brother Diabetes Grandmother (Maternal) Heart Disorder Grandmother (Maternal) FHx: No family history of breast, uterine, ovarian or colon ca. No children born in the family withcongenital anomalies or defects. ROS: ROS was performed. Pertinent positives and negatives are documented in the HPI. All others were negative or non contributory. Constitutional: no weight loss, weakness or fatigue Head: no headache Eyes: no worsening of vision ENT: no hearing loss, tinnitus, voice changes sinus congestion, sore throat Resp: no cough or SOB Cardiac: no chest pain, palpitations, dyspnea on exertion Breast: no breast lumps, masses, nipple discharge GI: no heartburn, diarrhea, constipation, nausea, vomiting, appetite OK Musculoskeletal: no significant joint/muscle pain or swelling Female : no dysuria and no incontinence Neuro: no weakness, numbness or tingling Psych: denies feeling down, depressed or hopeless in past month, denies being bothered by little interest or pleasure in doing things in past month and no insomnia Heme: no fever, no chills, no sweats and no bleeding/bruising Endo: no unplanned weight change, diaphoresis or hot/cold intolerance Skin: no rash, no itching and no new/changing skin lesion BP 134/80 | Wt 59.4 kg (131 lb) | LMP 12/19/2022 | BMI 22.14 kg/m | BSA 1.64 m GENERAL: alert, healthy, no distress, well nourished and well developed SKIN: Skin color, texture, and turgor normal. No rashes or significant lesions Plan: Reviewed labs and HSG. Discussed bilateral mild hydrosalpinx on HSG and potential for bilateral salpingectomy before embryo transfer. Discussed consult with genetic counselor and karyotype with both partners; and also to discuss further PGT-A and carrier screening. Counseled both patient and partner on smoking cessation. Recommend talking with PCP about smoking cessation if needing assistance. Discussed process of IVF/ICSI including brief overview of possible medications, risks and success rates. Discussed pre-cycle testing to include SA in [place], trial transfer, US, cultures and labs for both partners. Discussed potential failures of IVF include inability to stimulate ovaries and cancellation, no oocytes retrieved, failed fertilization and no progression to blastocyst. Discussed option of PGT-A, intended as screening test and not definitive test of embryo; Discussed freeze all cycles with subsequent FET; discussed improved implantation if known euploid embryo; discussed rate of SAB still not zero. Discussed financial considerations and that it needs to be paid in full prior to cycle start. Couple would like to pursue IVF but unsure if it is financially attainable at this time. For now, couple will see genetics and let us know when they would like to pursue IVF. I spent a total of 20-29 minutes (exact time 25 mins) on the date of service in preparation, delivery, and documentation of the care provided to Janett Rain excluding any time spent in the performance of separately billed services. Keren Wetzel PA-C 01/12/2023 11:24 AM Keren Wetzel PA-C Fertility [address] [place] [address] documented in this encounter Nursing Notes * ANSLEY Navarro - 01/12/2023 11:11 AM EDT Patient here for 4 week follow up HSG done 11/28/22 documented in this encounter Plan of Treatment Upcoming Encounters Date Type Specialty Care Team Description 06/14/2023 Office Visit Internal Medicine Haley Felder MD [address] [facility], [place] [address] Scheduled Referrals Name Type Priority Associated Diagnoses Orde r Schedule GENETICS REFERRAL OP Referral Within 10 days (routine) Encounter for procreative genetic counseling Ordered: 01/12/2023 Health Maintenance Due Date Last Done Comments [...] as of this encounter Visit Diagnoses Diagnosis Encounter for procreative genetic counseling- Primary documented in this encounter Care Teams Emergency Management System Director Relationship Specialty Start Date End Date Haley Felder MD [address] [facility] [place] [address] PCP - General Internal Medicine 12/10/22 documented as of this encounter"
--- OUTSIDE RECORDS SUMMARY | 2023-06-18 07:48 | External Medical Summary | Summary of Care ---
Author Name Unknown Organization [facility] Address [address] [place] [address] Phone [phone] Care Team Providers Care Family Law Specialist Name Role Phone Haley Felder MD Primary Care Provider [phone] Reason for Visit * Reason Onset Date Comments Referral 01/12/2023 Fertility Geneti cs Referral Encounter Details Date Type Department Care Team Description 01/12/2023 Telephone Homemaking Rehabilitation Consultant Obstetrics Maternal Medicine, [place] [address] [place] [address] Dayanna Amaro CHRA Referral (Fertility Genetics Referral ) Allergies No known active allergiesdocumented as of this encounter (statuses as of 01/26/2023) Medications Medication Sig Dispensed Refills Start Date End Date Status Bristol-3 1000 MG Oral Capsule Take by mouth. 0 Active Iuoed-Eev-Srrh 0.25 MG Oral Tablet Chewable Take by mouth. 0 Active Forte Oral TabletIndications:History of multiple miscarriages 1 daily 0 12/10/2022 Active documented as of this encounter (statuses as of 01/26/2023) Active Problems Problem Noted Date History of multiple miscarriages 023 Tobacco use disorder 12/10/2022 Intramural leiomyoma of uterus 3 Excessive caffeine intake 12/10/2022 Anxiety 03/09/2014 Seasonal allergic rhinitis due to pollen 04/11/2003 documented as of this encounter (statuses as of 01/26/2023) Resolved Problems Problem Noted Date Resolved Date [...] as of this encounter (statuses as of 01/26/2023) Immunizations Name Administration Dates Next Due DTP Vaccine 11/04/1993, 1,04/19/1990,02/16,1989 H1N1 2009 Influenza, Intranasal 08/19/2009 HPV Vaccine, 4-Valent 03/28/2008,11/17/2007,12/2007 Haemophilus B (HIB) 02/07/1991,09/27/1990,1989 Hepatitis B Vaccine 11/05/1992,05/03/1992,1991 MMR - Measles/Mumps/Rubella Vaccine 01/03/1994,0 02/07/1991 Meningococcal Conjugate Vacc ine (Menactra/Menveo) 10/01/2006 OPV - Polio Virus Vaccine (Oral) 994,04/18/1991,04/19/1990,02/16,1989 PPD 01/18/2012, 1,02/17/2010,01/21,12/27/2007 Pneumococcal Conjugate Vacci ne, 20-valent ([id number]) 12/10/2022 Seasonal Influenza, Split, I IV3, With [...] * Telephone Encounter - CLAU Campos - 01/26/2023 1:22 PM EDT Third attempt to contact the pt about their recent fertility referral. Attempted to call twice, no answer, unable to leave message as the mailbox is full. Letter sent out in the mail. Respectfully, Dayanna Amaro Genetic Counseling Power Brake Operator Maternal Medicine For further questions call the Genetic Counselor at + . * Telephone Encounter - CLAU Campos - 01/19/2023 2:17 PM EDT Second attempt to contact the pt about their recent fertility referral. No answer, unable to leave message as the mailbox is full. Respectfully, Dayanna Amaro Genetic Counseling Power Brake Operator Maternal Medicine For further questions call the Genetic Counselor at + . * Telephone Encounter - CLAU Campos - 01/12/2023 12:24 PM EDT Attempted to contact the pt about their recent fertility referral. No answer, unable to leave message as the mailbox is full. MyG sent with details. Respectfully, Dayanna Amaro Genetic Counseling Power Brake Operator Maternal Medicine For further questions call the [...] person availability. Respectfully, Dayanna Amaro Genetic Counseling Power Brake Operator Maternal Medicine For further questions call the Genetic Counselor at + . documented in this encounter Plan of Treatment Upcoming Encounters Date Type Specialty Care Team Description 06/14/2023 Office Visit Internal Medicine Haley Felder MD [address] [place] [address], [place] [address] Health Maintenance Due Date Last Done Comments [...] filedocumented as of this encounter Care Teams Family Law Specialist Relationship Specialty Start Date End Date Haley Felder MD [address] [place] [address] PCP - General Internal Medicine 12/10/22 documented as of this encounter
--- OUTSIDE RECORDS SUMMARY | 2023-06-18 07:48 | External Medical Summary | Summary of Care ---
Author Name Unknown Organization [facility] Address [address] [place] [address] Phone [phone] Care Team Providers Care Epic Beacon Analyst Name Role Phone Haley Felder MD Primary Care Provider Encounter Details Date Type Department Care Team (Late st Contact Info) Description 06/07/2023 Telephone Gynecology/Obstetrics [facility] [address] [place] [address] Fredo Eckert MD [address] [place] [address] Allergies No known active allergiesdocumented as of this encounter (statuses as of 06/07/2023) Medications Medication Sig Dispensed Refills Start Date End Date Status Eastman-3 1000 MG Oral Capsule Take by mouth. 0 Active Nvnrb-Qfr-Bdux 0.25 MG Oral Tablet Chewable Take by mouth. 0 Active Forte Oral TabletIndications:History of multiple miscarriages 1 daily 0 12/10/2022 Active documented as of this encounter (statuses as of 06/07/2023) Active Problems Problem Noted Date Diagnosed Date History of multiple miscarriages 12/10/2022 Tobacco use disorder 12/10/2022 Intramural leiomyoma of uterus 12/10/2022 Excessive caffeine intake 12/10/2022 Anxiety 03/09/2014 Seasonal allergic rhinitis due to pollen 003 documented as of this encounter (statuses as of 06/07/2023) Resolved Problems Problem Noted Date Diagnosed Date [...] as of this encounter (statuses as of 06/07/2023) Immunizations Name Administration Dates Next Due H1N1 2009 Influenza, Intranasal 08/19/2009 HPV Vaccine, 4-Valent 03/28/2008,11/17/2007,12/2007 Meningococcal Conjugate Vacc ine (Menactra/Menveo) 10/01/2006 PPD 01/18/2012, 1,02/17/2010,01/21,12/27/2007 Pneumococcal Conjugate Vacci ne, 20-valent ([id number]) 12/10/2022 Seasonal Influenza, Split, I IV3, With [...] money to get more. Never true 12/10/2022 [place] Depression Scale Answer Date Recorded [place] Depression Scale Total 4 05/06/2021 The thought [...] encounter Miscellaneous Notes * Telephone Encounter - Chelita Diop RN [...] to confirm. Pt can be reached at [phone] or [phone] documented in this encounter Plan of Treatment Upcoming Encounters Date Type Department Care Team (Late st Contact Info) Description 06/14/2023 9:00 AM EST Office Visit General Internal Medicine [facility] Rebekah Ceballos [address] [place], [place] [address] Haley Felder MD [address] [place] [address] Scheduled Orders Name Type Priority Associated Diagnoses Orde r Schedule BETA-HCG, QUANTITATIVE Lab Routine Amenorrhea, primary Other, Please specify in Comments field for 5 Occurrences starting 06/07/2023 until 06/07/2024 Health Maintenance Due Date Last Done Comments [...] of this encounter Visit Diagnoses Diagnosis Amenorrhea, primary- Primary Absence of menstruation documented in this encounter Care Teams Epic Beacon Analyst Relationship Specialty Start Date End Date Haley Felder MD [address] [place] [address] PCP - General Internal Medicine 12/10/22 documented as of this encounter
--- OUTSIDE RECORDS SUMMARY | 2023-06-18 07:49 | External Medical Summary ---
Author Name Unknown Address Unknown Organization K01:[facility] - [address] [facility] [address] Laboratory Report Ordering Provider Test Date Status DIDI BONILLA 12/14/2022 08:12:26 Final Observation Date Value Abnormality Reference (Units ) Status Blitz [employer] SPECIMEN-LAV 12/14/2022 08:12:26 Freezing of extracted DNA, whole blood and/or serum. Final Performing Location [facility] [address] [facility] [address]
--- OUTSIDE RECORDS SUMMARY | 2023-06-18 07:49 | External Medical Summary ---
Author Name Unknown Address Unknown Organization K01:[facility] - [address] [place] [address] Laboratory Report Ordering Provider Test Date Status DIDI BONILLA 12/14/2022 08:12:26 Final Observation Date Value Abnormality Reference (Units ) Status MYCODE SPECIMEN-SST 12/14/2022 08:12:26 Freezing of extracted DNA, whole blood and/or serum. Final Performing Location [facility] - [address] [place] [address]
--- OUTSIDE RECORDS SUMMARY | 2023-06-18 07:49 | External Medical Summary | Summary of Care ---
Author Name Unknown Organization [facility] Address [address] [place] [address] Phone [phone] Care Team Providers Care Janitorial Cleaner Name Role Phone Haley Felder MD Primary Care Provider [phone] Reason for Visit * Reason Onset Date Comments MyCode Consent 12/14/2022 Encounter Details Date Type Department Care Team Description 12/14/2022 Orders Only Outcomes Research Department [address] [place] [address] Savannah Gonsales CHRA [employer] [facility] Other*[id number]* Allergies No known active allergiesdocumented as of this encounter (statuses as of 12/14/2022) Medications Medication Sig Dispensed Refills Start Date End Date Status Lubb[place]-3 1000 MG Oral Capsule Take by mouth. 0 Active Hdfbr-Myt-Tjxx 0.25 MG Oral Tablet Chewable Take by mouth. 0 Active Forte Oral TabletIndications:History of multiple miscarriages 1 daily 0 12/10/2022 Active documented as of this encounter (statuses as of 12/14/2022) Active Problems Problem Noted Date History of multiple miscarriages 023 Tobacco use disorder 12/10/2022 Intramural leiomyoma of uterus 3 Excessive caffeine intake 12/10/2022 Food insecurity 05/19/2021 Overview: Per [facility] Protocol Anxiety 03/09/2014 Seasonal allergic rhinitis due to pollen 04/11/2003 documented as of this encounter (statuses as of 12/14/2022) Resolved Problems Problem Noted Date Resolved Date 05/06/2021 12/10/2022 Overview: Problem Action Taken Date [...] as of this encounter (statuses as of 12/14/2022) Immunizations Name Administration Dates Next Due H1N1 2009 Influenza, Intranasal 08/19/2009 HPV Vaccine, 4-Valent 03/28/2008,11/17/2007,12/2007 Meningococcal Conjugate Vacc ine (Menactra/Menveo) 10/01/2006 PPD 01/18/2012, 1,02/17/2010,01/21,12/27/2007 Pneumococcal Conjugate Vacci ne, 20-valent ([id number]) 12/10/2022 Seasonal Influenza, Split, I IV3, With [...] on file documented as of this encounter Progress Notes * CLAU Lua - 12/14/2022 8:09 AM EDT MyCode Consent Documentation Janett Rain provided consent/authorization to participate in the MyCode Project. documented in this encounter Plan of Treatment Upcoming Encounters Date Type Specialty Care Team Description 01/12/2023 Office Visit Fertility Keren Wetzel PA-C [address] [place] [address] 06/14/2023 Office Visit [facility] [address] Pending Results Name Type Priority Associated Diagnoses Date /Time MYCODE INITIAL ADULT Lab Routine [employer] Research Other*[id number] 12/14/2022 8:12 AM EDT Scheduled Orders Name Type Priority Associated Diagnoses Orde r Schedule MYCODE INITIAL ADULT Lab Routine [facility] Research Other*[id number] Expected: 12/14/2022 (Approximate), Expires: 01/03/2024 Health Maintenance Due Date Last Done Comments COVID-19 Vaccine (#1) 04/10/1990 HIV Screening 2004 Hepatitis C Screening 10/09/2007 *SPIROMETRY ONCE FOR ASTHMA-ADULT 07/02/2022 Influenza Vaccine (FLU shot) (Season Ended) 2023 [...] as of this encounter Visit Diagnoses Diagnosis [facility] Research Other*[id number]- Primary documented in this encounter Care Teams Janitorial Cleaner Relationship Specialty Start Date End Date Haley Felder MD [address] [place], [place] [id number] PCP - General Internal Medicine 12/10/22 documented as of this encounter
--- OUTSIDE RECORDS SUMMARY | 2023-06-18 07:49 | External Medical Summary | Summary of Care ---
Author Name Unknown Organization [facility] Address [address] [place] [address] Phone [phone] Care Team Providers Care Retirement Manager Name Role Phone Haley Felder MD Primary Care Provider [phone] Encounter Details Date Type Department Care Team Description 12/21/2022 Orders Only Outcomes Research Department [address] [place] [address] Kyra Gomez CHRA [employer] [facility] Other*[id number] Allergies No known active allergiesdocumented as of this encounter (statuses as of 12/21/2022) Medications Medication Sig Dispensed Refills Start Date End Date Status [place]-3 1000 MG Oral Capsule Take by mouth. 0 Active Lpmws-Owo-Eeyj 0.25 MG Oral Tablet Chewable Take by mouth. 0 Active Forte Oral TabletIndications:History of multiple miscarriages 1 daily 0 12/10/2022 Active documented as of this encounter (statuses as of 12/21/2022) Active Problems Problem Noted Date History of multiple miscarriages 023 Tobacco use disorder 12/10/2022 Intramural leiomyoma of uterus 3 Excessive caffeine intake 12/10/2022 Anxiety 03/09/2014 Seasonal allergic rhinitis due to pollen 04/11/2003 documented as of this encounter (statuses as of 12/21/2022) Resolved Problems Problem Noted Date Resolved Date [...] as of this encounter (statuses as of 12/21/2022) Immunizations Name Administration Dates Next Due H1N1 2009 Influenza, Intranasal 08/19/2009 HPV Vaccine, 4-Valent 03/28/2008,11/17/2007,12/2007 Meningococcal Conjugate Vacc ine (Menactra/Menveo) 10/01/2006 PPD 01/18/2012, 1,02/17/2010,01/21,12/27/2007 Pneumococcal Conjugate Vacci ne, 20-valent ([id number]) 12/10/2022 Seasonal Influenza, Split, I IV3, With [...] Wetzel PA-C [address] [place] [address] 06/14/2023 Office Visit Internal Medicine Haley Felder MD [address] [place] [address] Scheduled Orders Name Type Priority Associated Diagnoses Orde r Schedule MYCODE SUBSEQUENT ADULT Lab Routine [facility] Research Other*[id number] Every 6 Months for 2 Occurrences starting 12/21/2022 until 01/10/2024 Health Maintenance Due Date Last Done Comments [...] this encounter Visit Diagnoses Diagnosis [employer] Research Other*[id number] documented in this encounter Care Teams Retirement Manager Relationship Specialty Start Date End Date Haley Felder MD [address] [facility] [place] [address] PCP - General Internal Medicine 12/10/22 documented as of this encounter
--- OUTSIDE RECORDS SUMMARY | 2023-06-18 07:49 | External Medical Summary | Summary of Care ---
Author Name Unknown Organization [facility] Address [address] [place] [address] Phone [phone] Care Team Providers Care Block Layer Name Role Phone Haley Felder MD Primary Care Provider [phone] Encounter Details Date Type Department Care Team Description 12/21/2022 Telephone Gynecology/Obstetrics [facility] [address] [place] [address] Quinn Valencia MD [address] [facility] [address] Allergies No known active allergiesdocumented as of this encounter (statuses as of 12/22/2022) Medications Medication Sig Dispensed Refills Start Date End Date Status [place]-3 1000 MG Oral Capsule Take by mouth. 0 Active Dbmlr-Xua-Bztc 0.25 MG Oral Tablet Chewable Take by mouth. 0 Active Forte Oral TabletIndications:History of multiple miscarriages 1 daily 0 12/10/2022 Active documented as of this encounter (statuses as of 12/22/2022) Active Problems Problem Noted Date History of multiple miscarriages 023 Tobacco use disorder 12/10/2022 Intramural leiomyoma of uterus 3 Excessive caffeine intake 12/10/2022 Anxiety 03/09/2014 Seasonal allergic rhinitis due to pollen 04/11/2003 documented as of this encounter (statuses as of 12/22/2022) Resolved Problems Problem Noted Date Resolved Date [...] as of this encounter (statuses as of 12/22/2022) Immunizations Name Administration Dates Next Due H1N1 2009 Influenza, Intranasal 08/19/2009 HPV Vaccine, 4-Valent 03/28/2008,11/17/2007,12/2007 Meningococcal Conjugate Vacc ine (Menactra/Menveo) 10/01/2006 PPD 01/18/2012, 1,02/17/2010,01/21,12/27/2007 Pneumococcal Conjugate Vacci ne, 20-valent ([id number]) 12/10/2022 Seasonal Influenza, Split, I IV3, With [...] Telephone Encounter - Alia Thakkar LPN - 12/21/2022 2:41 PM EDT Patient was to call with LMP to schedule a hysterosalpingogram per JUAN LMP 12/19 Menses usually last 4 days. Type of control: None Per [facility] Radiology policy patient is to be scheduled after her menses has stopped. Cycle days 7-10.Please schedule between (12/25- 12/28) Message sent to Kendra to schedule procedure at [facility]. Patient to take 2 Motrin prior to procedure and pt needs to show up 1/2 hour before appointment andcheck in at patient registration at [facility]. Urine test needs done at a [facility] lab at least 24hrs prior to procedure. Order faxed documented in this encounter Plan of Treatment Upcoming Encounters Date Type Specialty Care Team Description 01/12/2023 Office Visit Fertility Keren Wetzel PA-C [address] [place] [address] 06/14/2023 Office Visit [facility] [address] Scheduled Orders Name Type Priority Associated Diagnoses Orde r Schedule INF SIS/HYSTOSALPINGOGRAP H Procedures Routine Fertility testing Ordered: 12/21/2022 HCG QUALITATIVE, URINE Lab Routine Fertility testing Expected: 12/21/2022, Expires: 12/22/2023 Health Maintenance Due Date Last Done Comments [...] of this encounter Visit Diagnoses Diagnosis Fertility testing- Primary documented in this encounter Care Teams Block Layer Relationship Specialty Start Date End Date Haley Felder MD [address] [facility] [place] [address] PCP - General Internal Medicine 12/10/22 documented as of this encounter
--- OUTSIDE RECORDS SUMMARY | 2023-06-18 07:49 | External Medical Summary | Summary of Care ---
Author Name Unknown Organization [facility] Address [address] [place] [address] Phone [phone] Care Team Providers Care Nutrition Counselor Name Role Phone Haley Felder MD Primary Care Provider [phone] Reason for Visit * Reason Comments Outpatient Testing Encounter Details Date Type Department Care Team Description 12/14/2022 Laboratory Laboratory [address] [place] [address] [place] [address] History of multiple miscarriages; Screening for diabetes mellitus; FH: diabetes mellitus; [employer] Other*[id number] Allergies No known active allergiesdocumented as of this encounter (statuses as of 12/14/2022) Medications Medication Sig Dispensed Refills Start Date End Date Status [place]-3 1000 MG Oral Capsule Take by mouth. 0 Active Zombr-Jbn-Pbuq 0.25 MG Oral Tablet Chewable Take by [...] 12/14/2022) Immunizations Name Administration Dates Next Due DTP Vaccine 11/04/1993, 1,04/19/1990,02/16,1989 H1N1 2009 Influenza, Intranasal 08/19/2009 HPV Vaccine, 4-Valent 03/28/2008,11/17/2007,020 12/2007 Haemophilus B (HIB) 02/07/1991,09/27/1990,1989 Hepatitis B Vaccine 11/05/1992,05/03/1992,1991 MMR - Measles/Mumps/Rubella Vaccine 01/03/1994,0 02/07/1991 Meningococcal Conjugate Vacc ine (Menactra/Menveo) 10/01/2006 OPV - Polio Virus Vaccine (Oral) 994,04/18/1991,04/19/1990,02/16,1989 PPD 01/18/2012, 1,02/17/2010,01/21,12/27/2007 Pneumococcal Conjugate Vacci ne, 20-valent ([id number]) 12/10/2022 Seasonal Influenza, Split, I IV3, With [...] Fertility Keren Wetzel PA-C [address] [place] [address] 06/14/2023 Office Visit [facility] [address] Pending Results Name Type Priority Associated Diagnoses Date /Time COMPREHENSIVE METABOLIC PANEL Lab Routine History of multiple miscarriages 12/14/2022 8:08 AM EDT HEMOGLOBIN A1C Lab Routine History of multiple miscarriages Screening for diabetes mellitus FH: diabetes mellitus 12/14/2022 8:08 AM EDT MYCODE INITIAL ADULT Lab Routine [employer] Other*[id number] 12/14/2022 8:12 AM EDT MYCODE INITIAL ADULT-PINK Lab Routine [employer] Other*[id number] 12/14/2022 8:12 AM EDT MYCODE SST1 Lab Routine [employer] Other*[id number] 12/14/2022 8:12 AM EDT MYCODE SST2 Lab Routine [employer] Other*[id number] 12/14/2022 8:12 AM EDT Health Maintenance Due Date Last [...] as of this encounter Visit Diagnoses Diagnosis History of multiple miscarriages Screening for diabetes mellitus FH: diabetes mellitus Family history of diabetes mellitus [employer] Other*[id number] documented in this encounter Care Teams Nutrition Counselor Relationship Specialty Start Date End Date Haley Felder MD [address] [place] [address] PCP - General Internal Medicine 12/10/22 documented as of this encounter
--- OUTSIDE RECORDS SUMMARY | 2023-06-18 07:49 | External Medical Summary | Summary of Care ---
Author Name Unknown Organization [facility] Address [address] [place] [address] Phone [phone] Care Team Providers Care Coater Operator Name Role Phone Haley Felder MD Primary Care Provider [phone] Reason for Visit * Reason Comments Outpatient Testing Encounter Details Date Type Department Care Team Description 12/14/2022 Laboratory Laboratory [address] [place] [address] [place] [address] History of multiple miscarriages; Screening for diabetes mellitus; FH: diabetes mellitus; [employer] Other*[id number] Allergies No known active allergiesdocumented as of this encounter (statuses as of 12/14/2022) Medications Medication Sig Dispensed Refills Start Date End Date Status [place]-3 1000 MG Oral Capsule Take by mouth. 0 Active Unwty-Wsp-Fuda 0.25 MG Oral Tablet Chewable Take by [...] 01/18/2012, 1,02/17/2010,01/21,12/27/2007 Pneumococcal Conjugate Vacci ne, 20-valent ([id number]) 12/10/2022 Seasonal Influenza, Split, I IV3, With [...] Fertility Keren Wetzel PA-C [address] [place] [address] 06/14/2023 Office Visit Internal [facility] [address] Pending Results Name Type Priority Associated Diagnoses Date /Time COMPREHENSIVE METABOLIC PANEL Lab Routine History of multiple miscarriages 12/14/2022 8:08 AM EDT HEMOGLOBIN A1C Lab Routine History of multiple miscarriages Screening for diabetes mellitus FH: diabetes mellitus 12/14/2022 8:08 AM EDT MYCODE INITIAL ADULT Lab Routine [employer] Other*[id number] 12/14/2022 8:12 AM EDT MYCODE INITIAL ADULT-PINK Lab Routine [employer] Other*[id number] 12/14/2022 8:12 AM EDT MYCODE SST1 Lab Routine [employer] Other*[id number] 12/14/2022 8:12 AM EDT MYCODE SST2 Lab Routine [employer] Other*[id number] 12/14/2022 8:12 AM EDT Health Maintenance Due [...] Family history of diabetes mellitus [employer] Other*[id number] documented in this encounter Care Teams Coater Operator Relationship Specialty Start Date End Date Haley Felder MD 200 [facility] [place] [address] PCP - General Internal Medicine 12/10/22 documented as of this encounter
--- OUTSIDE RECORDS SUMMARY | 2023-06-18 07:49 | External Medical Summary ---
Author Name Unknown Address Unknown Organization K01:LABORATORY [facility] - [address] [place] [address] [place] [address] Laboratory Report Ordering Provider Test Date Status SUSANNA GERMAIN 12/14/2022 08:08:59 Final Observation Date Value Abnormality Reference (Units ) Status BUN 12/14/2022 08:08:59 10 6-20 (mg/dL) Final Creatinine 12/14/2022 08:08:59 0.7 0.5-1.0 (mg/dL) Final Glomerular filtration rate/1.73 sq M.predicted [Volume Rate/Area] in Serum, Plasma or Blood by Creatinine-based formula (CKD-EPI) 12/14/2022 08:08:59 >90 >=60 (mL/min) Final eGFR is calculated based on the CKD-EPI 2020 equation SODIUM 12/14/2022 08:08:59 138 135-146 (m mol/L) Final Potassium 12/14/2022 08:08:59 4.0 3.5-5.1 (m mol/L) Final Cl 12/14/2022 08:08:59 102 98-107 (mm ol/L) Final CO2 12/14/2022 08:08:59 25 22-32 (mmo l/L) Final Anion gap 12/14/2022 08:08:59 11 7-15 (mmol /L) Final Glucose 12/14/2022 08:08:59 111 70-120 (mg /dL) Final Albumin 12/14/2022 08:08:59 4.8 3.8-5.0 (g /dL) Final AST (Aspartate aminotransferase) 12/14/2022 08:08:59 22 10-35 (U/L) Final Alk Phos 12/14/2022 08:08:59 54 35-130 (U/ L) Final Bilirubin, Total 12/14/2022 08:08:59 0.5 <=1 .2 (mg/dL) Final Calcium 12/14/2022 08:08:59 9.6 8.4-10.2 ( mg/dL) Final Protein 12/14/2022 08:08:59 6.9 6.0-8.3 (g /dL) Final ALT (Alanine aminotransferase) 12/14/2022 08:08:59 17 10-35 (U/L) Final Performing Location LABORATORY [facility] - [address] [facility] [address]
--- OUTSIDE RECORDS SUMMARY | 2023-06-18 07:49 | External Medical Summary | Summary of Care ---
Author Name Unknown Organization [facility] Address [address] [facility] [address] Phone [phone] Care Team Providers Care Insulator Apprentice Name Role Phone Haley Felder MD Primary Care Provider [phone] Encounter Details Date Type Department Care Team Description 12/21/2022 Telephone Gynecology/Obstetrics [facility] [address] [place] [address] Quinn Valencia MD [address] [place] [address] Allergies No known active allergiesdocumented as of this encounter (statuses as of 12/24/2022) Medications Medication Sig Dispensed Refills Start Date End Date Status [place]-3 1000 MG Oral Capsule Take by mouth. 0 Active Ejwpt-Ktk-Uigb 0.25 MG Oral Tablet Chewable Take by mouth. 0 Active Forte Oral TabletIndications:History of multiple miscarriages 1 daily 0 12/10/2022 Active documented as of this encounter (statuses as of 12/24/2022) Active Problems Problem Noted Date History of multiple miscarriages 023 Tobacco use disorder 12/10/2022 Intramural leiomyoma of uterus 3 Excessive caffeine intake 12/10/2022 Anxiety 03/09/2014 Seasonal allergic rhinitis due to pollen 04/11/2003 documented as of this encounter (statuses as of 12/24/2022) Resolved Problems Problem Noted Date Resolved Date [...] as of this encounter (statuses as of 12/24/2022) Immunizations Name Administration Dates Next Due DTP Vaccine 11/04/1993, 1,04/19/1990,02/16,1989 H1N1 2009 Influenza, Intranasal 08/19/2009 HPV Vaccine, 4-Valent 03/28/2008,11/17/2007,12/2007 Haemophilus B (HIB) 02/07/1991,09/27/1990,1989 Hepatitis B Vaccine 11/05/1992,05/03/1992,1991 MMR - Measles/Mumps/Rubella Vaccine 01/03/1994,0 02/07/1991 Meningococcal Conjugate Vacc ine (Menactra/Menveo) 10/01/2006 OPV - Polio Virus Vaccine (Oral) 994,04/18/1991,04/19/1990,02/16,1989 PPD 01/18/2012, 1,02/17/2010,01/21,12/27/2007 Pneumococcal Conjugate Vacci ne, 20-valent ([id number]) 12/10/2022 Seasonal Influenza, Split, I IV3, With [...] Telephone Encounter - Miroslava Castellanos RN - 12/24/2022 12:01 PM EDT Patient called and verbalized understanding to all she will go to [facility] for HCG test Wednesday and aware of arrival time for Wednesday. Pt aware to call back with any questions. HCG test order faxed to provided number. * Telephone Encounter - CARSON Thompson - 12/23/2022 10:00 AM EDT LM for pt. Pt is scheduled for HSG at [facility] on WednesdayDecember 28 at 11:[address] Valencia. Pt will need to be at [facility] main entrance to register at 11 AM. Pt will need order faxed to [facility] [phone]. Pt can go to [facility] to have this done on Wednesday. Or wecan fax a STAT order to have done 30 mins before HSG on same day. * Telephone Encounter - Alia Thakkar LPN - 12/21/2022 2:41 PM EDT Patient was to call with LMP to schedule a hysterosalpingogram per JUAN LMP 12/19 Menses usually last 4 days. Type of control: None Per [facility] Radiology policy patient is to be scheduled after her menses has stopped. Cycle days 7-10.Please schedule between (12/25- 12/28) Message sent to Kendra to schedule procedure at [facility]. Patient to take 2 Motrin prior to procedure and pt needs to show up 1/2 hour before appointment andcheck in at patient registration at [facility]. Urine test needs done at a [facility] lab at least 24hrs prior to procedure. Order faxed documented in this encounter Plan of Treatment Upcoming Encounters Date Type Specialty Care Team Description 01/12/2023 Office Visit Fertility Keren Wetzel PA-C [address] [place] [address] 06/14/2023 Office Visit Internal Medicine [facility] [address] Scheduled Orders Name Type Priority Associated Diagnoses [...] Primary documented in this encounter Care Teams Insulator Apprentice Relationship Specialty Start Date End Date Haley Felder MD [address] [place] [address] PCP - General Internal Medicine 12/10/22 documented as of this encounter
--- OUTSIDE RECORDS SUMMARY | 2023-06-18 07:49 | External Medical Summary ---
Author Name Unknown Address Unknown Organization K01:LABORATORY [facility] - [address] [facility] [address] Laboratory Report Ordering Provider Test Date Status SUSANNA GERMAIN 12/14/2022 08:08:59 Final Observation Date Value Abnormality Reference (Units ) Status HbA1C 12/14/2022 08:08:59 5.2 4.0-5.6 (% ) Final The use of HbA1c to monitor glycemic status is based on normal hemoglobin and HbA composition. This test should not be used in patients with abnormal hemoglobin that affects the half life of the red blood cell or the in vivo glycation rates. Glucose, estimated average 12/14/2022 08:08:59 103 <126 (mg/dL) Final Performing Location LABORATORY [facility] - [address] [facility] [address]
--- OUTSIDE RECORDS SUMMARY | 2023-06-18 07:49 | External Medical Summary | Summary of Care ---
Author Name Unknown Organization [facility] Address [address] [place] [facility] [place] [address] Phone [phone] Care Team Providers Care Carpenter General Name Role Phone Haley Felder MD Primary Care Provider Encounter Details Date Type Department Care Team Description 12/21/2022 Telephone Gynecology/Obstetrics [facility] [address] [place] [address] Quinn Valencia MD [address] [place] [address] Allergies No known active allergiesdocumented as of this encounter (statuses as of 12/23/2022) Medications Medication Sig Dispensed Refills Start Date End Date Status [place]-3 1000 MG Oral Capsule Take by mouth. 0 Active Fjhgn-Qhd-Vdqk 0.25 MG Oral Tablet Chewable Take by mouth. 0 Active Forte Oral TabletIndications:History of multiple miscarriages 1 daily 0 12/10/2022 Active documented as of this encounter (statuses as of 12/23/2022) Active Problems Problem Noted Date History of multiple miscarriages 023 Tobacco use disorder 12/10/2022 Intramural leiomyoma of uterus 3 Excessive caffeine intake 12/10/2022 Anxiety 03/09/2014 Seasonal allergic rhinitis due to pollen 04/11/2003 documented as of this encounter (statuses as of 12/23/2022) Resolved Problems Problem Noted Date Resolved Date [...] as of this encounter (statuses as of 12/23/2022) Immunizations Name Administration Dates Next Due DTP Vaccine 11/04/1993, 1,04/19/1990,02/16,1989 H1N1 2009 Influenza, Intranasal 08/19/2009 HPV Vaccine, 4-Valent 03/28/2008,11/17/2007,12/2007 Haemophilus B (HIB) 02/07/1991,09/27/1990,1989 Hepatitis B Vaccine 11/05/1992,05/03/1992,1991 MMR - Measles/Mumps/Rubella Vaccine 01/03/1994,0 02/07/1991 Meningococcal Conjugate Vacc ine (Menactra/Menveo) 10/01/2006 OPV - Polio Virus Vaccine (Oral) 994,04/18/1991,04/19/1990,02/16,1989 PPD 01/18/2012, 1,02/17/2010,01/21,12/27/2007 Pneumococcal Conjugate Vacci ne, 20-valent ([id number]) 12/10/2022 Seasonal Influenza, Split, I IV3, With [...] encounter Miscellaneous Notes * Telephone Encounter - CARSON Thompson - 12/23/2022 10:00 AM EDT LM for pt. Pt is scheduled for HSG at [facility] on WednesdayDecember 28 at 11:[address] Valencia. Pt will need to be at [facility] main entrance to register at 11 AM. Pt will need order faxed to [facility] [phone]. Pt can go to [facility] to have this done on Wednesday. Or wecan fax a STAT order to have done 30 mins before HSG on same day. * Telephone Encounter - Alia Thakkar LPN - 12/21/2022 2:41 PM EDT Patient was to call with LMP to schedule a hysterosalpingogram per JUAN LMP 12/19 Menses usually last 4 days. Type of control: None Per [facility] Radiology policy patient is to be scheduled after her menses has stopped. Cycle days 7-10.Please schedule between (12/25- 12/28) Message sent to Kendra to schedule procedure at [facility]. Patient to take 2 Motrin prior to procedure and pt needs to show up 1/2 hour before appointment andcheck in at patient registration at [facility]. Urine test needs done at a [facility] lab at least 24hrs prior to procedure. Order faxed documented in this encounter Plan of Treatment Upcoming Encounters Date Type Specialty Care Team Description 01/12/2023 Office Visit Fertility Keren Wetzel PA-C [address] [place] [address] 06/14/2023 Office Visit Internal Medicine [facility]aley Felder MD [address] [facility] [address] Scheduled Orders Name Type Priority Associated Diagnoses [...] Primary documented in this encounter Care Teams Carpenter General Relationship Specialty Start Date End Date Haley Felder MD [address] [place] [address] PCP - General Internal Medicine 12/10/22 documented as of this encounter
--- OUTSIDE RECORDS SUMMARY | 2023-06-18 07:49 | External Medical Summary ---
Author Name Unknown Address Unknown Organization K01:LABORATORY [facility] - [address] [place] [address] Laboratory Report Ordering Provider Test Date Status DIDI BONILLA 12/14/2022 08:12:26 Final Observation Date Value Abnormality Reference (Units ) Status MYCODE SPECIMEN-SST 12/14/2022 08:12:26 Freezing of extracted DNA, whole blood and/or serum. Final Performing Location LAB[facility]ATORY [facility] - [address] [place] [address]
--- OUTSIDE RECORDS SUMMARY | 2023-06-18 08:02 | External Medical Summary | Summary of Care ---
Author Name Unknown Organization [facility] Address [address] [place] [address] Phone [phone] Care Team Providers Care Inbound Sales Advisor Name Role Phone Haley Felder MD Primary Care Provider [phone] Encounter Details Date Type Department Care Team (Late st Contact Info) Description 06/10/2023 Telephone Gynecology/Obstetrics [facility] [address] [place] [address] Fredo Eckert MD [address] [facility] [place] [address] Allergies No known active allergiesdocumented as of this encounter (statuses as of 06/11/2023) Medications Medication Sig Dispensed Refills Start Date End Date Status [place]-3 1000 MG Oral Capsule Take by mouth. 0 Active Qfyow-Luw-Uobw 0.25 MG Oral Tablet Chewable Take by mouth. 0 Active Forte Oral TabletIndications:History of multiple miscarriages 1 daily 0 12/10/2022 Active documented as of this encounter (statuses as of 06/11/2023) Active Problems Problem Noted Date Diagnosed Date History of multiple miscarriages 12/10/2022 Tobacco use disorder 12/10/2022 Intramural leiomyoma of uterus 12/10/2022 Excessive caffeine intake 12/10/2022 Anxiety 03/09/2014 Seasonal allergic rhinitis due to pollen 003 documented as of this encounter (statuses as of 06/11/2023) Resolved Problems Problem Noted Date Diagnosed Date [...] as of this encounter (statuses as of 06/11/2023) Immunizations Name Administration Dates Next Due DTP Vaccine 11/04/1993, 1,04/19/1990,02/16,1989 H1N1 2009 Influenza, Intranasal 08/19/2009 HPV Vaccine, 4-Valent 03/28/2008,11/17/2007,12/2007 Haemophilius B (HIB), unspecified 02/07/1991,,07/26/1990 Hepatitis B Vaccine 11/05/1992,05/03/1992,1991 MMR - Measles/Mumps/Rubella Vaccine 01/03/1994,0 02/07/1991 Meningococcal Conjugate Vacc ine (Menactra/Menveo) 10/01/2006 OPV - Polio Virus Vaccine (Oral) 994,04/18/1991,04/19/1990,02/16,1989 PPD 01/18/2012, 1,02/17/2010,01/21,12/27/2007 Pneumococcal Conjugate Vacci ne, 20-valent ([id number]) 12/10/2022 Seasonal Influenza, Split, I IV3, With [...] money to get more. Never true 12/10/2022 [place] Depression Scale Answer Date Recorded [place] Depression Scale Total 4 05/06/2021 The thought [...] encounter Miscellaneous Notes * Telephone Encounter - Hanane Dick OSA - 06/11/2023 2:46 PM EDT Dating US scheduled prior to NOB; Please place order and send back to me * Telephone Encounter - Destiny Zacarias LPN - 06/11/2023 2:40 PM EDT Patient returned call, aware of results. Transferred to Hanane for scheduling. * Telephone Encounter - Alia Thakkar LPN [...] Care Team (Late st Contact Info) Description 06/16/2023 2:15 PM EST Imaging Radiology [address] [place] [address] 06/17/2023 9:15 AM EST Office Visit Gynecology/Obstetrics [facility] [address] [place] [address] Moira Jason CRNP [address] [place] [address] Health Maintenance Due Date Last Done Comments [...] filedocumented as of this encounter Care Teams Inbound Sales Advisor Relationship Specialty Start Date End Date Haley Felder MD [address] [place] [address] PCP - General Internal Medicine 12/10/22 documented as of this encounter
--- OUTSIDE RECORDS SUMMARY | 2023-06-18 08:02 | External Medical Summary | Summary of Care ---
Author Name Unknown Organization [facility] Address [address] [place] [address] Phone [phone] Care Team Providers Care Hand Cultivator Name Role Phone Haley Felder MD Primary Care Provider [phone] Encounter Details Date Type Department Care Team (Late st Contact Info) Description 06/10/2023 Telephone Gynecology/Obstetrics [facility] [address] [place] [id number] Fredo Eckert MD [address] [facility] [place] [address] Allergies No known active allergiesdocumented as of this encounter (statuses as of 06/11/2023) Medications Medication Sig Dispensed Refills Start Date End Date Status [place]-3 1000 MG Oral Capsule Take by mouth. 0 Active Dcdrb-Qds-Eyjn 0.25 MG Oral Tablet Chewable Take by [...] 01/18/2012, 1,02/17/2010,01/21,12/27/2007 Pneumococcal Conjugate Vacci ne, 20-valent ([id number]) 12/10/2022 Seasonal Influenza, Split, I IV3, With [...] money to get more. Never true 12/10/2022 Lane Depression Scale Answer Date Recorded Lane Depression Scale Total 4 05/06/2021 The thought [...] encounter Miscellaneous Notes * Telephone Encounter - Destiny Zacarias LPN - 06/11/2023 2:40 PM EDT Patient returned call, aware of results. Transferred to [facility] [place] for scheduling. * Telephone Encounter - Alia [...] filedocumented as of this encounter Care Teams Hand Cultivator Relationship Specialty Start Date End Date Haley Felder MD [address] [place] [address] PCP - General Internal Medicine 12/10/22 documented as of this encounter
--- NOTE | 2023-06-22 13:15 | Discharge Summary ---
Date of Service June 22, 2023 Admission HPI Per Admitting Provider 32-year-old female para 0-0-3-0 admitted to the emergency room via ambulance due to acute abdominal pain after taking a shower earlier this evening approximately 6 PM she fainted in the shower was brought to the emergency room. The patient is known to be . Chronic care ultrasound done in the emergency revealed hemoperitoneum the patient had no intrauterine gestation and ultrasound done at the bedside by ultrasound revealed a right adnexal mass 2.5 cm with hemoperitoneum noted and no intrauterine gestation. Discharge Data Consultations 06/11/23 18:58 ED Decision to Admit Stat Procedures Performed Operation Date: 06/11/23 20:00 Actual Procedures p Laparoscopic ectopic with right salpingectomy(Not Applicable) - Juliocesar Elliott MD Hospital Course (1) Hemoperitoneum due to rupture of right tubal ectopic : (2) , ectopic: Plan Patient underwent laparoscopic right salpingectomy for ruptured ectopic . She was discharged POD#1 in stable condition.
== END 2023-06-12 09:00 | disposition home or self-care (01) ==
LOC: ED 18:18 → OR 20:20 → 4E2 20:26 → INTOOBSV 20:26